=== PATIENT | female | born 1980 | race Caucasian/White ===

== ENCOUNTER 2020-04-17 00:58 | Emergency (ER) | payer BC ==
[2020-04-17] MEDS ORDERED: NORMAL SALINE 1000 ML 1,000 ML IV ONE (01:22)
[2020-04-17] MEDS ORDERED: ONDANSETRON HCL INJ/PF 4 MG/2 ML SDV IV ONE (01:22)
--- NOTE | 2020-04-17 01:25 | ER Document Report ---
ED General - General Chief Complaint: Shortness Of Breath Stated Complaint: FLU LIKE SYMPTOMS Time Seen by Provider: 04/17/20 01:14 Notes: Patient is a 39 year old female that comes to the emergency department for chief complaint of feeling generally sick symptoms for the past 6 days, however over the past day she has developed a fever, cough, shortness of breath. Patient also states that she had dry heaving throughout the day, several loose stools over the past 2 days, and she is almost eaten nothing for the past 2 days. She has been closely exposed to her who already tested positive for COVID- 19, patient does report a recent trip to [place]. Patient has a history of anxiety, medicated for this, , she denies any medical history otherwise including smoking, asthma, recreational drugs. Patient was noted to have a fev er of 100.8 F, she was given Tylenol 975 mg by EMS, she was also noted to have oxygen of 92% on room air and was placed on 2 L nasal cannula at bedside. - Related Data Allergies/Adverse Reactions: No Known Allergies Allergy (Verified 04/17/20 01:13) Past Medical History - General Information source: Patient - Social History Smoking Status: Never Smoker Frequency of alcohol use: None Drug Abuse: None Lives with: Family Family History: Reviewed & Not Pertinent Patient has homicidal ideation: No Past Surgical History: Reports: Hx Tonsillectomy - Immunizations Hx Diphtheria, Pertussis, Tetanus Vaccination: Yes Review of Systems - Review of Systems Constitutional: See HPI EENT: No symptoms reported Cardiovascular: No symptoms reported Respiratory: See HPI Gastrointestinal: See HPI Genitourinary: No symptoms reported Female Genitourinary: No symptoms reported Musculoskeletal: No symptoms reported Skin: No symptoms reported Hematologic/Lymphatic: No symptoms reported Neurological/Psychological: No symptoms reported Physical Exam - Vital signs Vitals: Pulse Ox 96 04/17/20 01:05 - Notes Notes: GENERAL: Alert, interacts well. No acute distress. HEAD: Normocephalic, atraumatic. EYES: Pupils equal, round, and reactive to light. Extraocular movements intact. ENT: Oral mucosa moist, tongue midline. Oropharynx unremarkable. Airway patent. Nares patent, sinuses non-tender, ear canals unremarkable, TM's intact. NECK: Full range of motion. Supple. Trachea midline. No lymphadenopathy. LUNGS: Occasional mild cough and scattered coarse breath sounds. No wheezes, rales, rhonchi, tachypnea, or respiratory distress. HEART: Borderline tachycardia, normal rhythm, no murmur ABDOMEN: Soft, non-tender. Non-distended. No rigidity or guarding EXTREMITIES: Moves all 4 extremities spontaneously. No edema, normal radial and dorsalis pedis pulses bilaterally. No cyanosis. BACK: no cervical, thoracic, lumbar midline tenderness. No saddle anesthesia, normal distal neurovascular exam. Moves all extremities in full range of motion. NEUROLOGICAL: Alert and oriented x3. Normal speech. Cranial nerves II through XII grossly intact. Strength 5/5 in all extremities. PSYCH: Normal affect, normal mood. SKIN: Warm, dry, normal turgor. No rashes or lesions noted. Course - Re-evaluation Re-evalutation: Patient was taken off 2 L nasal cannula, her oxygen varies from 92 to normal range. She has a few coarse breath sounds but no tachypnea, no wheezing, rales, or rhonchi. She is febrile and this was treated. She is not tachycardic. She is quite well-appearing, talkative, alert. CBC unremarkable, chemistry unremarkable except mild elevation of LFTs. Abdomen is soft and nontender. Troponin is not elevated. is negative. Urine shows ketones, blood, patient is finishing up her menstrual cycle. Patient was given IV fluids and nausea medication, afterwards she tolerated p.o. without difficulty, she states she feels much better. Chest x-ray does indicate left lower pneumonia. Blood cultures are pending. Patient significant other is positive for COVID-19. I highly suspect COVID-19 as a cause of her generalized symptoms. Given Rocephin, azithromycin, dexamethasone. Discussed with Dr. Matta. Recommendation is that patient can be discharged with azithromycin, nausea medication, and strict return precautions. I discussed this at length with patient. She states appreciation and agreement. Stable and well-appearing at time of discharge. - Vital Signs Vital signs: Temp Pulse Resp BP Pulse Ox 98.4 F 98 15 110/72 98 04/17/20 05:05 04/17/20 05:05 04/17/20 05:05 04/17/20 05:05 04/17/20 05:05 - Laboratory Result Diagrams: 04/17/20 00:25 04/17/20 00:25 Laboratory results interpreted by me: 04/17/20 04/17/20 04/17/20 00:25 00:25 03:57 MCV 79 L MCH 26.8 L RDW 15.8 H Sodium 135.6 L Carbon Dioxide 21 L BUN 6 L Glucose 111 H AST 110 H ALT 62 H Urine Protein 100 H Urine Ketones 80 H Urine Blood LARGE H Ur Leukocyte Esterase TRACE H Urine Ascorbic Acid 40 H - EKG Interpretation by Me Additional EKG results interpreted by me: EKG shows sinus rhythm at a rate of 95, QTC 483, left axis deviation, no T wave inversions or ST segment changes in consecutive leads Discharge - Discharge Clinical Impression: Person under investigation for COVID-19 Pneumonia Qualifiers: Pneumonia type: due to unspecified organism Laterality: left Lung location: lower lobe of lung Qualified Code(s): J18.9 - Pneumonia, unspecified organism Fever Qualifiers: Fever type: unspecified Qualified Code(s): R50.9 - Fever, unspecified Nausea and vomiting Qualifiers: Vomiting type: unspecified Vomiting Intractability: non-intractable Qualified Code(s): R11.2 - Nausea with vomiting, unspecified Condition: Stable Disposition: HOME, SELF-CARE Additional Instructions: Your evaluation shows pneumonia. We also strongly suspect that you have the COVID-19 virus. Take the antibiotics as prescribed, your next dose of this is tomorrow. Drink plenty of fluids and rest. You can take Tylenol and ibuprofen for fever and body aches. Take Phenergan for nausea/vomiting. Come back if you are worse including difficulty breathing, continued spiking fevers, uncontrolled vomiting, or any other concerning or worsening symptoms. See additional instructions listed below. As a person under investigation for COVID-19, the [place] Department of Health and Human Services (division on public health) advises you to adhere to the following guidance until your test results are reported to you. If your test result is positive, you will receive additional information from your provider and your local health department at that time. Remain at home until you are cleared by the health provider or public health authorities. Keep a log of visitors to your home, notify any visitors to your home of your isolation status. If you plan to move to a new address or leave the county, notify the local health department in your County. Call your Doctor or seek care if you have an urgent medical need. Before seeking medical care, call him to get instructions from the provider before arriving at the medical office, clinic, or hospital. Notify them that you are being tested for the virus (COVID-19) so that arrangements can be made, as necessary, to prevent transmission to others in the healthcare setting. Next, notify the local health department in your county. If a medical emergency arises and you need to call 911, inform the first responders that you are being tested for the virus that causes COVID-19. Next, notify the local health department in your county. Prescriptions: Promethazine HCl [Phenergan 25 mg Tablet] 25 mg PO Q6H PRN #20 tablet PRN Reason: Azithromycin [Zithromax 250 mg Tablet] 250 mg PO ASDIR PRN #4 tablet PRN Reason:
[2020-04-17 01:31] LABS: ABSOLUTE LYMPHOCYTES (AUTO) 1.3 10^3/uL (0.5-4.7); ABSOLUTE MONOCYTES (AUTO) 0.2 10^3/uL (0.1-1.4); ABSOLUTE NEUT (AUTO) 3.3 10^3/uL (1.7-8.2); BASOPHILS % (AUTO) 0.3 % (0-2); EOSINOPHILS % (AUTO) 0.1 % (0-6); HEMATOCRIT 39.9 % (36.0-47.0); HEMOGLOBIN 13.5 g/dL (12.0-15.5); LYMPHOCYTES % (AUTO) 26.1 % (13-45); MEAN CORPUSCULAR HEMOGLOBIN 26.8 pg (27.0-33.4); MEAN CORPUSCULAR HGB CONC 33.8 g/dL (32.0-36.0); MEAN CORPUSCULAR VOLUME 79 fl (80-97); MONOCYTES % (AUTO) 4.8 % (3-13); PLATELET COUNT 251 10^3/uL (150-450); RED BLOOD COUNT 5.03 10^6/uL (3.72-5.28); RED CELL DISTRIBUTION WIDTH 15.8 % (11.5-14.0); SEGMENTED NEUTROPHILS % (AUTO) 68.7 % (42-78); TOTAL CELLS COUNTED % (AUTO) 100 %; WHITE BLOOD COUNT 4.8 10^3/uL (4.0-10.5)
[2020-04-17 01:47] LABS: ALBUMIN 4.3 g/dL (3.5-5.0); ALKALINE PHOSPHATASE 77 U/L (38-126); ANION GAP 10 (5-19); ASPARTATE AMINO TRANSFERASE 110 U/L (14-36); BILIRUBIN,DIRECT 0.1 mg/dL (0.0-0.4); BILIRUBIN,TOTAL 0.4 mg/dL (0.2-1.3); BLOOD UREA NITROGEN 6 mg/dL (7-20); CALCIUM 8.9 mg/dL (8.4-10.2); CARBON DIOXIDE 21 mmol/L (22-30); CHLORIDE 105 mmol/L (98-107); GLUCOSE 111 mg/dL (75-110); TOTAL PROTEIN 7.8 g/dL (6.3-8.2)
--- NOTE | 2020-04-17 02:34 | RADIOLOGY REPORT (SQ) ---
CLINICAL HISTORY: shortness of breath, fever, COVID exposure COMPARISON: None. TECHNIQUE: XR CHEST 1 VIEW 04/17/2020 1:21 AM CDT FINDINGS: Cardiac silhouette is normal in size. There is mild mostly left basilar airspace disease. There is no pleural effusion. There is no pneumothorax. There are no acute osseous findings. IMPRESSION: Possible developing mostly left basilar pneumonia.
[2020-04-17] MEDS ORDERED: DEXAMETHASONE SOD PHOS INJ 10 MG/1 ML VIAL IV ONE ×2 (02:40→03:55)
[2020-04-17] MEDS ORDERED: CEFTRIAXONE 1 GM/D5W RTU 1 GM/50 ML RTUPB IV ONE (02:40)
[2020-04-17] MEDS ORDERED: AZITHROMYCIN 250 MG TABLET PO ONE (03:55)
[2020-04-17 04:26] LABS: APPEARANCE,URINE SLIGHTLY-CLOUDY; BILIRUBIN,URINE NEGATIVE (NEGATIVE); COLOR,URINE AMBER; GLUCOSE, URINE NEGATIVE (NEGATIVE); KETONES,URINE 80 mg/dL (NEGATIVE); LEUKOCYTE ESTERASE,URINE TRACE (NEGATIVE); NITRITE,URINE NEGATIVE (NEGATIVE); PROTEIN,URINE 100 mg/dL (NEGATIVE); URINE SPECIFIC GRAVITY 1.021; UROBILINOGEN,URINE NEGATIVE mg/dL (<2.0)
[2020-04-17 05:07] VITALS: BP 110/72
--- NOTE | 2020-04-18 10:24 | EKG REPORT ---
SEVERITY:- ABNORMAL ECG - SINUS RHYTHM PROBABLE LEFT ATRIAL ABNORMALITY LEFT VENTRICULAR HYPERTROPHY : Confirmed by: Violette Corea 18-Apr-2020 10:22:55
== END 2020-04-17 05:05 | disposition home or self-care (01) ==
LOC: ER 00:58
DX: Z20.828 Contact with and (suspected) exposure to other viral communicable diseases (principal); J18.9 Pneumonia, unspecified organism; R11.2 Nausea with vomiting, unspecified; R50.9 Fever, unspecified; R06.02 Shortness of breath; R05 Cough; R19.7 Diarrhea, unspecified; F41.9 Anxiety disorder, unspecified
CPT/HCPCS: 93005; 96376; 99284; 96361; 96375; 96365; 36415; 87040; 83690; 84703; 85025; 80053; 81001; 84484; 71045; 93010; J2405; J7030; J0696; J1100

== ENCOUNTER 2020-04-18 21:29 | Inpatient (IN) | payer BC ==
[2020-04-18] MEDS ORDERED: NORMAL SALINE 1000 ML 1,000 ML IV ONE (21:54)
[2020-04-18] MEDS ORDERED: ACETAMINOPHEN 325 MG TABLET PO ONE (21:55)
--- NOTE | 2020-04-18 22:18 | ER Document Report ---
Entered by AKHIL POPE SCRIBE 04/18/20 [id number] Acting as scribe for:GLORIA QUARLES IV, MD ED Respiratory Problem - General Chief Complaint: Other Stated Complaint: COVID 19 SYMPTOMS Time Seen by Provider: 04/18/20 21:34 Primary Care Provider: JOSE FOY MD [Primary Care Provider] - Follow up as needed Mode of Arrival: Medic Information source: Patient, Emergency Med Personnel Notes: This 39 year old female patient brought in by EMS from home presents to the ED today with complaints of increased shortness of breath for the last week, worse tonight. Patient also reports associated fever with temperature of 102.5 at home, cough, nausea/dry heaving, body aches, and difficulty sleeping. She states that she was seen here yesterday with the same complaint and felt better after being treated with supplemental oxygen, steroids, and fluids; however, she felt worse tonight so she called for EMS. Patient's is COVID positive and is currently being treated here. She also mentions recent travel to [place]. She notes that she has been tested for COVID by her PCP with results pending. Patients O2 sats were initially 89% on RA upon EMS arrival, so she was placed on 3L supplemental O2 which brought the sats up to 95%. - Related Data Allergies/Adverse Reactions: No Known Allergies Allergy (Verified 04/18/20 22:03) Past Medical History - General Information source: Patient - Social History Smoking Status: Never Smoker Cigarette use (# per day): No Chew tobacco use (# tins/day): No Smoking Education Provided: No Lives with: Spouse/Significant other Family History: Reviewed & Not Pertinent Patient has suicidal ideation: No Patient has homicidal ideation: No Psychiatric Medical History: Reports: Hx Anxiety Past Surgical History: Reports: Hx Section, Hx Tonsillectomy - Immunizations Hx Diphtheria, Pertussis, Tetanus Vaccination: Yes Review of Systems - Review of Systems Constitutional: See HPI, Fever EENT: No symptoms reported Cardiovascular: No symptoms reported Respiratory: See HPI, Cough, Short of breath Gastrointestinal: See HPI, Nausea, Vomiting Genitourinary: No symptoms reported Female Genitourinary: No symptoms reported Musculoskeletal: See HPI, Muscle pain Skin: No symptoms reported Hematologic/Lymphatic: No symptoms reported Neurological/Psychological: No symptoms reported -: Yes All other systems reviewed and negative Physical Exam - Vital signs Vitals: Resp BP Pulse Ox 31 H 113/67 90 L 04/18/20 21:25 04/18/20 21:25 04/18/20 21:25 - General General appearance: Alert, Other - Speaks in short sentences - HEENT Head: Normocephalic, Atraumatic Eyes: Normal Pupils: PERRL - Respiratory Respiratory status: Tachypnea, Other - 96% O2 saturation on 3L O2 via NC Chest status: Nontender Breath sounds: Other - Crackles in left lung base Chest palpation: Normal - Cardiovascular Rhythm: Regular, Tachycardia Heart sounds: Normal auscultation Murmur: No Friction rub: No Gallop: None auscultated - Abdominal Inspection: Normal Distension: No distension Bowel sounds: Normal Tenderness: Nontender - Abdomen soft Organomegaly: No organomegaly - Back Back: Normal, Nontender - Extremities General upper extremity: Normal inspection General lower extremity: Normal inspection - Neurological Neuro grossly intact: Yes Orientation: AAOx4 [place] Coma Scale Eye Opening: Spontaneous Dave Coma Scale Verbal: Oriented [place] Coma Scale Motor: Obeys Commands [place] Coma Scale Total: 15 - Psychological Associated symptoms: Normal affect, Normal mood - Skin Skin Temperature: Warm Skin Moisture: Dry Skin Color: Normal Course - Re-evaluation Re-evalutation: 04/19/20 00:35 Results of ED MSE discussed with patient. Recommendation for admission discussed with patient. All questions were answered. - Vital Signs Vital signs: Temp Pulse Resp BP Pulse Ox 100 F 97 22 H 115/71 96 04/18/20 21:40 04/18/20 21:40 04/18/20 23:31 04/18/20 23:31 04/18/20 23:31 - Laboratory Result Diagrams: 04/18/20 22:08 04/18/20 22:08 Laboratory results interpreted by me: 04/18/20 04/18/20 22:08 22:08 MCH 26.8 L RDW 15.9 H Sodium 134.3 L Potassium 3.4 L BUN 6 L Glucose 127 H Calcium 8.2 L AST 60 H - Diagnostic Test Radiology reviewed: Reports reviewed - Consults DR. BANG, HOSPITALIST Time consulted: 00:35 - ACCEPTED PT FOR ADMISSION Reason for consultation: 04/19/20 00:37 ACUTE RESPIRATORY FAILURE WITH HYPOXIA, BILATERAL PNEUMONIA Discharge - Discharge Clinical Impression: Acute respiratory failure with hypoxia Bilateral pneumonia Qualifiers: Pneumonia type: due to unspecified organism Lung location: unspecified part of lung Qualified Code(s): J18.9 - Pneumonia, unspecified organism Condition: Stable Disposition: ADMITTED INPATIENT Admitting Provider: Jono (Hospitalist) Unit Admitted: IMCU Referrals: JOSE FOY MD [Primary Care Provider] - Follow up as needed I personally performed the services described in the documentation, reviewed and edited the documentation which was dictated to the scribe in my presence, and it accurately records my words and actions.
[2020-04-18 22:24] LABS: ABSOLUTE LYMPHOCYTES (AUTO) 1.3 10^3/uL (0.5-4.7); ABSOLUTE MONOCYTES (AUTO) 0.3 10^3/uL (0.1-1.4); ABSOLUTE NEUT (AUTO) 4.5 10^3/uL (1.7-8.2); BASOPHILS % (AUTO) 0.5 % (0-2); HEMATOCRIT 36.7 % (36.0-47.0); HEMOGLOBIN 12.4 g/dL (12.0-15.5); LYMPHOCYTES % (AUTO) 20.7 % (13-45); MEAN CORPUSCULAR HEMOGLOBIN 26.8 pg (27.0-33.4); MEAN CORPUSCULAR HGB CONC 33.7 g/dL (32.0-36.0); MEAN CORPUSCULAR VOLUME 80 fl (80-97); MONOCYTES % (AUTO) 4.3 % (3-13); PLATELET COUNT 280 10^3/uL (150-450); RED BLOOD COUNT 4.61 10^6/uL (3.72-5.28); RED CELL DISTRIBUTION WIDTH 15.9 % (11.5-14.0); SEGMENTED NEUTROPHILS % (AUTO) 74.5 % (42-78); TOTAL CELLS COUNTED % (AUTO) 100 %; WHITE BLOOD COUNT 6.1 10^3/uL (4.0-10.5)
[2020-04-18 22:43] LABS: ALBUMIN 3.5 g/dL (3.5-5.0); ALKALINE PHOSPHATASE 52 U/L (38-126); ANION GAP 6 (5-19); ASPARTATE AMINO TRANSFERASE 60 U/L (14-36); BILIRUBIN,DIRECT 0.1 mg/dL (0.0-0.4); BILIRUBIN,TOTAL 0.5 mg/dL (0.2-1.3); BLOOD UREA NITROGEN 6 mg/dL (7-20); CALCIUM 8.2 mg/dL (8.4-10.2); CARBON DIOXIDE 23 mmol/L (22-30); CHLORIDE 105 mmol/L (98-107); GLUCOSE 127 mg/dL (75-110); POTASSIUM 3.4 mmol/L (3.6-5.0); TOTAL PROTEIN 6.8 g/dL (6.3-8.2)
--- NOTE | 2020-04-18 23:14 | RADIOLOGY REPORT (SQ) ---
EXAM DESCRIPTION: XR CHEST 1 VIEW COMPLETED DATE/TME: 04/18/2020 21:55 CLINICAL HISTORY: dyspnea COMPARISON: 04/17/2020 FINDINGS: Single frontal view of the chest. Cardiomediastinal silhouette: Cardiomegaly. Lungs: Low lung volumes. Interval increase in bibasilar airspace opacity. No pneumothorax. No definite effusion. Leads overlie the chest. Bones: Stable. Upper abdomen: Stable. IMPRESSION: 1. Interval increase in bibasilar opacities concerning for bilateral pneumonic process. Bilateral pneumonia could produce this appearance.
[2020-04-19] MEDS ORDERED: MAG HYDROX/AL HYDROX/SIMETH SUSP 30 ML UDCUP PO PRN (01:25)
[2020-04-19] MEDS ORDERED: MAGNESIUM HYDROXIDE SUSP 30 ML UDCUP PO PRN (01:25)
[2020-04-19] MEDS ORDERED: LORAZEPAM INJ 2 MG/1 ML VIAL IV PRN (01:25)
[2020-04-19] MEDS ORDERED: DEXAMETHASONE SOD PHOSPHATE INJ 4 MG/1 ML VIAL ONE (04:58)
[2020-04-19] MEDS: ACETAMINOPHEN 325 MG TABLET PO PRN ×2 (05:00→20:59)
[2020-04-19] MEDS: DEXAMETHASONE SOD PHOSPHATE INJ 4 MG/1 ML VIAL IV SCH ×3 (05:01→21:01)
[2020-04-19] MEDS: ENOXAPARIN SODIUM INJ 120 MG/0.8 ML DISP.SYRIN SUBCUT SCH ×3 (05:01→21:02)
[2020-04-19] MEDS: GUAIFENESIN SYRP 200 MG/10 ML UDC PO PRN ×3 (05:03→20:59)
[2020-04-19] MEDS ORDERED: MORPHINE SULFATE 10 MG/ML INJ ONE (05:47)
[2020-04-19] MEDS ORDERED: MORPHINE SULFATE 10 MG/ML INJ IV PRN ×6 (05:57→06:29)
[2020-04-19] MEDS ORDERED: HEPARIN SOD (PORCINE) 5,000 UNIT/ML 1 ML VIAL SUBCUT SCH (06:00)
--- NOTE | 2020-04-19 06:14 | PDOC H&P ---
History of Present Illness Admission Date/PCP: 04/19/2020 00:38 JOSE FOY MD Patient complains of: Dyspnea History of Present Illness: TATUM TOLLIVER is a 39 year old female who presented the emergency room with a one-week history of dyspnea. She admits gradually worsening dyspnea over the last week, becoming severe just prior to coming to the emergency room, accompanied by a nonproductive cough and a fever up to 102.5 F with chills. Her dyspnea has been associated with nausea with retching, malaise, ague and insomnia. Her dyspnea is worsened by activity or exertion and improved with rest. She denies other associated or accompanying signs and symptoms. She denies prior similar episodes. She has not identified any additional aggravating or ameliorating factors for her dyspnea. She was seen by Dr. Foy earlier in the week and was tested for COVID-19 but has not yet received the results. She was seen in the emergency room on 04/17/2020 for the same symptoms but felt improved after she was treated with IV fluid, IV steroids and supplemental oxygen. Her symptoms returned on the evening of 04/18/2020 becoming severe and resulting in her return to the emergency room. Her was diagnosed is COVID-19 positive earlier this week. In the emergency room she was found to have an O2 sat of 89% on room air and was treated with supplemental oxygen. Her chest x-ray was noted to have progressive worsening of her bibasilar pneumonia and she was subsequently admitted to the hospital for further evaluation and treatment on the COVID-19 unit as a patient under investigation. Past Medical History Cardiac Medical History: Denies: Atrial Fibrillation, Coronary Artery Disease, DVT, Hyperlipidema, Hypertension, Pulmonary Embolism Pulmonary Medical History: Reports: Pneumonia Denies: Asthma, Chronic Obstructive Pulmonary Disease (COPD) EENT Medical History: Denies: Cataracts, Ears - Hearing aids Neurological Medical History: Denies: Multiple Sclerosis, Seizures Endocrine Medical History: Denies: Diabetes Mellitus Type 1, Diabetes Mellitus Type 2, Hyperthyroidism, Hypothyroidism Renal/ Medical History: Denies: Chronic Kidney Disease, Nephrolithiasis Malignancy Medical History: Reports: None GI Medical History: Denies: Cirrhosis, Crohn's Disease, Gastroesophageal Reflux Disease, Hepatitis, Peptic Ulcer Disease, Ulcerative Colitis Musculoskeltal Medical History: Denies: Arthritis, Gout Skin Medical History: Denies: Eczema, Psoriasis Psychiatric Medical History: Reports: General Anxiety Disorder Denies: Alcohol Dependency, Substance Abuse, Tobacco Dependency Traumatic Medical History: Reports: None Hematology: Denies: Anemia, Bleeding Tendencies Infectious Medical History: Reports: None Past Surgical History Past Surgical History: Reports: Section, Tonsillectomy Social History Information Source: Patient Lives with: Spouse/Significant other Smoking Status: Never Smoker Electronic Cigarette use?: No Frequency of Alcohol Use: Occasional Hx Recreational Drug Use: No Drugs: None Hx Prescription Drug Abuse: No - Advance Directive Resuscitation Status: Full Code Surrogate healthcare decision maker:: Pankaj Tolliver Family History Family History: DM, Other. denies: CAD, Hypertension, Malignancy Parental Family History Reviewed: Yes Children Family History Reviewed: No Sibling(s) Family History Reviewed.: Yes Medication/Allergy Home Medications: Azithromycin [Zithromax 250 mg Tablet] 250 mg PO ASDIR PRN #4 tablet 04/17/20 Promethazine HCl [Phenergan 25 mg Tablet] 25 mg PO Q6H PRN #20 tablet 04/17/20 Venlafaxine HCl 37.5 mg PO DAILY 04/18/20 Allergies/Adverse Reactions: No Known Allergies Allergy (Verified 04/18/20 22:03) Review of Systems Constitutional: PRESENT: as per HPI, chills, fever(s) Eyes: ABSENT: visual disturbances, other - Eye pain Ears: ABSENT: hearing changes, other - Ear pain Nose, Mouth, and Throat: ABSENT: headache(s), sore throat Cardiovascular: PRESENT: as per HPI, dyspnea on exertion. ABSENT: chest pain, palpitations Respiratory: PRESENT: as per HPI, cough, dyspnea. ABSENT: hemoptysis, sputum Gastrointestinal: PRESENT: nausea, vomiting - Retching. ABSENT: abdominal pain, constipation, diarrhea Genitourinary: ABSENT: dysuria, hematuria Musculoskeletal: ABSENT: back pain, joint swelling Integumentary: ABSENT: pruritus, rash Neurological: ABSENT: confusion, convulsions, focal weakness, memory loss, syncope Psychiatric: PRESENT: anxiety. ABSENT: depression Endocrine: ABSENT: cold intolerance, heat intolerance Hematologic/Lymphatic: ABSENT: easy bleeding, easy bruising Allergic/Immunologic: ABSENT: seasonal rhinorrhea Physical Exam Vital Signs: Temp Pulse Resp BP Pulse Ox 100 F 97 22 H 115/71 96 04/18/20 21:40 04/18/20 21:40 04/18/20 23:31 04/18/20 23:31 04/18/20 23:31 Intake & Output 04/17/20 04/18/20 04/19/20 23:59 23:59 23:59 Intake Total 1000 Balance 1000 Weight 117.9 kg General appearance: PRESENT: no acute distress, cooperative, other - On supplemental oxygen per nasal cannula at the time of my evaluation Head exam: PRESENT: atraumatic, normocephalic Eye exam: PRESENT: conjunctiva pink. ABSENT: conjunctival injection, scleral icterus Ear exam: PRESENT: normal external ear exam. ABSENT: bleeding, drainage Mouth exam: PRESENT: dry mucosa, neck supple Neck exam: ABSENT: thyromegaly, tracheal deviation Respiratory exam: PRESENT: symmetrical, tachypnea. ABSENT: rales, rhonchi Cardiovascular exam: PRESENT: RRR. ABSENT: clicks, gallop, rubs Pulses: ABSENT: normal radial pulses, normal dorsalis pedis pul Vascular exam: PRESENT: normal capillary refill. ABSENT: pallor GI/Abdominal exam: PRESENT: normal bowel sounds, soft. ABSENT: tenderness Rectal exam: PRESENT: deferred Extremities exam: ABSENT: joint swelling, pedal edema Musculoskeletal exam: ABSENT: deformity, dislocation Neurological exam: PRESENT: alert, oriented to person, oriented to place, oriented to time, oriented to situation, CN II-XII grossly intact. ABSENT: motor sensory deficit Psychiatric exam: PRESENT: appropriate affect, normal mood Skin exam: PRESENT: dry, intact, warm. ABSENT: jaundice, rash, urticaria Results Laboratory Results: 04/18/20 22:08 04/18/20 22:08 04/18/20 04/18/20 04/18/20 22:08 22:08 22:08 WBC 6.1 RBC 4.61 Hgb 12.4 Hct 36.7 MCV 80 MCH 26.8 L MCHC 33.7 RDW 15.9 H Plt Count 280 Seg Neutrophils % 74.5 Sodium 134.3 L Potassium 3.4 L Chloride 105 Carbon Dioxide 23 Anion Gap 6 BUN 6 L Creatinine 0.67 Est GFR ( Amer) > 60 Glucose 127 H Lactic Acid 1.1 Calcium 8.2 L Total Bilirubin 0.5 AST 60 H Alkaline Phosphatase 52 Total Protein 6.8 Albumin 3.5 Impressions: Chest X-Ray 04/18/20 21:55 IMPRESSION: 1. Interval increase in bibasilar opacities concerning for bilateral pneumonic process. Bilateral pneumonia could produce this appearance. Assessment and Plan - Diagnosis (1) Community acquired bilateral lower lobe pneumonia Is this a current diagnosis for this admission?: Yes (2) Acute respiratory failure with hypoxia Is this a current diagnosis for this admission?: Yes (3) Generalized anxiety disorder Is this a current diagnosis for this admission?: Yes (4) Person under investigation for COVID-19 Is this a current diagnosis for this admission?: Yes - Plan Summary Summary: Patient will be admitted to the COVID 19 unit where she will receive routine sup portive and symptomatic cares. She will be given supplemental oxygen via nasal cannula with potential use of noninvasive airway pressure support devices as needed to maintain an adequate oxygen saturation. She will receive Decadron 2 mg IV every 8 hours. She will receive zinc 220 mg p.o. daily, famotidine 20 mg p.o. twice daily, azithromycin 500 mg p.o. daily and Rocephin 1 g IV daily. She will enjoy a regular diet as tolerated. She will initially receive D5 lactated Ringer solution at 167 mL an hour. She will receive Ativan 1 mg IV every 4 hours as needed for anxiety or restlessness. CBCs, metabolic profiles, magnesium levels and additional laboratory and/or radiographic evaluations will be obtained as needed. - Time Time Spent with patient: Less than 15 minutes Anticipated Discharge Disposition: Home, Self Care Anticipated Discharge: Other - Undetermined - Inpatient Certification Based on my medical assessment, after consideration of the patient's comorbidities, presenting symptoms, or acuity I expect that the services needed warrant INPATIENT care.: Yes I certify that my determination is in accordance with my understanding of Medic are's requirements for reasonable and necessary INPATIENT services [42 CFR 412.3e].: Yes Medical Necessity: Failure to Improve With Outpatient Therapy, Need Close Monitoring Due to Risk of Patient Decompensation
[2020-04-19] MEDS: DEXTROSE 5%-LACTATED RINGERS 1,000 ML IV PRN ×3 (07:37→20:59)
[2020-04-19] MEDS: VENLAFAXINE HCL 75 MG TABLET PO SCH (09:39)
[2020-04-19] MEDS: ZINC SULFATE 220 MG CAPSULE PO SCH (09:40)
[2020-04-19] MEDS: AZITHROMYCIN 250 MG TABLET PO SCH (09:40)
[2020-04-19] MEDS: FAMOTIDINE 20 MG TABLET PO SCH ×2 (09:40→21:01)
[2020-04-19] MEDS: CEFTRIAXONE 1 GM/D5W RTU 1 GM/50 ML RTUPB IV SCH (09:41)
[2020-04-19] MEDS ORDERED: VENLAFAXINE HCL 25 MG TABLET PO SCH (10:00)
[2020-04-19] MEDS: PROMETHAZINE HCL INJ 25 MG/1 ML VIAL IV PRN ×2 (11:48→16:24)
[2020-04-19] MEDS: MORPHINE SULFATE 10 MG/ML INJ IV PRN ×3 (11:49→20:59)
[2020-04-19] MEDS ORDERED: IPRATROPIUM/ALBUTEROL 0.5-2.5 MG/3 ML AMPUL NEB PRN (14:30)
[2020-04-19] MEDS ORDERED: IPRATROPIUM/ALBUTEROL 0.5-2.5 MG/3 ML AMPUL NEB SCH ×2 (14:30→16:00)
[2020-04-19 16:03] LABS: ARTERIAL BLOOD BASE EXCESS 0.8 mmol/L; ARTERIAL BLOOD FIO2 5L; ARTERIAL BLOOD H2CO3 1.02 mmol/L (1.05-1.35); ARTERIAL BLOOD O2 SATURATION 85.9 % (94-98); ARTERIAL BLOOD PCO2 33.8 mmHg (35-45); ARTERIAL BLOOD PH 7.47 (7.35-7.45); ARTERIAL BLOOD TOTAL CO2 25.1 mmol/L (21-25)
[2020-04-19] MEDS: IPRATROPIUM/ALBUTEROL 0.5-2.5 MG/3 ML AMPUL NEB SCH (20:30)
[2020-04-19] MEDS: MELATONIN 5 MG TABLET PO PRN (21:01)
[2020-04-20] MEDS: IPRATROPIUM/ALBUTEROL 0.5-2.5 MG/3 ML AMPUL NEB SCH ×2 (02:13→08:50)
[2020-04-20] MEDS: MORPHINE SULFATE 10 MG/ML INJ IV PRN ×2 (03:17→09:00)
[2020-04-20] MEDS: GUAIFENESIN SYRP 200 MG/10 ML UDC PO PRN ×2 (03:18→09:00)
[2020-04-20] MEDS: DEXTROSE 5%-LACTATED RINGERS 1,000 ML IV PRN ×2 (03:19→09:56)
[2020-04-20 04:15] LABS: APPEARANCE,URINE SLIGHTLY-CLOUDY; BILIRUBIN,URINE NEGATIVE (NEGATIVE); COLOR,URINE YELLOW; GLUCOSE, URINE NEGATIVE (NEGATIVE); KETONES,URINE NEGATIVE (NEGATIVE); LEUKOCYTE ESTERASE,URINE NEGATIVE (NEGATIVE); NITRITE,URINE NEGATIVE (NEGATIVE); PROTEIN,URINE NEGATIVE (NEGATIVE); URINE SPECIFIC GRAVITY 1.012; UROBILINOGEN,URINE NEGATIVE mg/dL (<2.0)
[2020-04-20 05:28] LABS: HEMATOCRIT 34.2 % (36.0-47.0); HEMOGLOBIN 11.6 g/dL (12.0-15.5); MEAN CORPUSCULAR HEMOGLOBIN 26.9 pg (27.0-33.4); MEAN CORPUSCULAR VOLUME 79 fl (80-97); PLATELET COUNT 255 10^3/uL (150-450); RED BLOOD COUNT 4.32 10^6/uL (3.72-5.28); RED CELL DISTRIBUTION WIDTH 15.9 % (11.5-14.0); WHITE BLOOD COUNT 7.1 10^3/uL (4.0-10.5)
[2020-04-20 05:49] LABS: ANION GAP 8 (5-19); BLOOD UREA NITROGEN 3 mg/dL (7-20); CALCIUM 8.1 mg/dL (8.4-10.2); CARBON DIOXIDE 24 mmol/L (22-30); CHLORIDE 107 mmol/L (98-107); GLUCOSE 161 mg/dL (75-110); POTASSIUM 3.9 mmol/L (3.6-5.0)
[2020-04-20] MEDS: DEXAMETHASONE SOD PHOSPHATE INJ 4 MG/1 ML VIAL IV SCH ×3 (06:10→21:31)
[2020-04-20 09:30] LABS: ARTERIAL BLOOD BASE EXCESS 1.8 mmol/L; ARTERIAL BLOOD H2CO3 1.14 mmol/L (1.05-1.35); ARTERIAL BLOOD HCO3 25.7 mmol/L (20-24); ARTERIAL BLOOD O2 SATURATION 87.7 % (94-98); ARTERIAL BLOOD PCO2 37.9 mmHg (35-45); ARTERIAL BLOOD PH 7.45 (7.35-7.45); ARTERIAL BLOOD PO2 50.8 mmHg (80-100); ARTERIAL BLOOD TOTAL CO2 26.9 mmol/L (21-25)
[2020-04-20] MEDS: VENLAFAXINE HCL 75 MG TABLET PO SCH (09:32)
[2020-04-20] MEDS: ENOXAPARIN SODIUM INJ 120 MG/0.8 ML DISP.SYRIN SUBCUT SCH ×2 (09:32→21:52)
[2020-04-20] MEDS: CEFTRIAXONE 1 GM/D5W RTU 1 GM/50 ML RTUPB IV SCH (09:32)
[2020-04-20] MEDS: FAMOTIDINE 20 MG TABLET PO SCH (09:32)
[2020-04-20] MEDS: AZITHROMYCIN 250 MG TABLET PO SCH (09:32)
[2020-04-20] MEDS: ZINC SULFATE 220 MG CAPSULE PO SCH (09:32)
[2020-04-20 09:46] LABS: ARTERIAL BLOOD FIO2 90%
[2020-04-20] MEDS ORDERED: MORPHINE SULFATE 10 MG/ML INJ IV PRN (09:58)
[2020-04-20] MEDS ORDERED: DEXTROSE 5%-LACTATED RINGERS 1,000 ML IV PRN (10:45)
--- NOTE | 2020-04-20 10:52 | PDOC PROGRESS REPORT ---
Subjective Progress Note for:: 04/20/20 Subjective:: TATUM TOLLIVER is a 39 year old female who presented the emergency room with a one-week history of dyspnea. She admits gradually worsening dyspnea over the last week, becoming severe just prior to coming to the emergency room, accompanied by a nonproductive cough and a fever up to 102.5 F with chills. Her dyspnea has been associated with nausea with retching, malaise, ague and insomnia. Her dyspnea is worsened by activity or exertion and improved with rest. She denies other associated or accompanying signs and symptoms. She denies prior similar episodes. She has not identified any additional aggravating or ameliorating factors for her dyspnea. She was seen by Dr. Erickson earlier in the week and was tested for COVID-19 but has not yet received the results. She was seen in the emergency room on 04/17/2020 for the same symptoms but felt improved after she was treated with IV fluid, IV steroids and supplemental oxygen. Her symptoms returned on the evening of 04/18/2020 becoming severe and resulting in her return to the emergency room. Her was diagnosed is COVID-19 positive earlier this week. In the emergency room she was found to have an O2 sat of 89% on room air and was treated with supplemental oxygen. Her chest x-ray was noted to have progressive worsening of her bibasilar pneumonia and she was subsequently admitted to the hospital for further evaluation and treatment on the COVID-19 unit as a patient under investigation. 04/20/2020. Patient noted to be hypoxic yesterday evening, and ABG showed severe hypoxemia, will start on high flow with resolution of her symptoms however this morning patient still noted to be in moderate distress and repeat ABG shows persistent hypoxemia. Patient denies any fever, p.o. tolerant, having bowel bladder movement, complaining of shortness of breath and anxiety. Denies any fever or chills. If hypoxemia worsen patient may need to be transferred to ICU. Reason For Visit: COMMUNITY-ACQUIRED BILATERAL LOWER LOBE PNEUMONIA Physical Exam Vital Signs: Temp Pulse Resp BP Pulse Ox 98.8 F 73 50 H 117/67 90 L 04/20/20 08:38 04/20/20 08:38 04/20/20 08:38 04/20/20 08:38 04/20/20 08:38 Intake & Output 04/19/20 04/20/2004/21/20 06:59 06:59 06:59 Intake Total 1120 3170 1050 Output Total 570 Balance 1120 2600 1050 Weight 117.9 kg 117.9 kg General appearance: PRESENT: obese, severe distress Head exam: PRESENT: atraumatic, normocephalic Respiratory exam: PRESENT: accessory muscle use, clear to auscultation rick, tachypnea. ABSENT: rales, rhonchi Cardiovascular exam: PRESENT: RRR. ABSENT: diastolic murmur, rubs, systolic murmur GI/Abdominal exam: PRESENT: normal bowel sounds, soft. ABSENT: distended, guarding, mass, organolmegaly, rebound, tenderness Neurological exam: PRESENT: alert, awake, oriented to person, oriented to place, oriented to time, oriented to situation, CN II-XII grossly intact. ABSENT: motor sensory deficit Skin exam: PRESENT: dry, intact, warm. ABSENT: cyanosis, rash Results Laboratory Results: 04/20/20 04:38 04/20/20 04:38 04/19/20 04/20/20 04/20/20 15:45 03:50 04:38 WBC 7.1 RBC 4.32 Hgb 11.6 L Hct 34.2 L MCV 79 L MCH 26.9 L MCHC 34.0 RDW 15.9 H Plt Count 255 Carbonic Acid 1.02 L HCO3/H2CO3 Ratio 23:1 ABG pH 7.47 H ABG pCO2 33.8 L ABG pO2 47.0 L ABG HCO3 24.0 ABG O2 Saturation 85.9 L ABG Base Excess 0.8 FiO2 5L Sodium Potassium Chloride Carbon Dioxide Anion Gap BUN Creatinine Est GFR ( Amer) Glucose Calcium Urine Color YELLOW Urine Appearance SLIGHTLY-CLOUDY Urine pH 6.0 Ur Specific [place] 1.012 Urine Protein NEGATIVE Urine Glucose (UA) NEGATIVE Urine Ketones NEGATIVE Urine Blood MODERATE H Urine Nitrite NEGATIVE Ur Leukocyte Esterase NEGATIVE Urine WBC (Auto) 3 Urine RBC (Auto) 7 04/20/20 04/20/20 04:38 09:10 WBC RBC Hgb Hct MCV MCH MCHC RDW Plt Count Carbonic Acid 1.14 HCO3/H2CO3 Ratio 22:1 ABG pH 7.45 ABG pCO2 37.9 ABG pO2 50.8 L ABG HCO3 25.7 H ABG O2 Saturation 87.7 L ABG Base Excess 1.8 FiO2 90% Sodium 138.8 Potassium 3.9 Chloride 107 Carbon Dioxide 24 Anion Gap 8 BUN 3 L Creatinine 0.49 L Est GFR ( Amer) > 60 Glucose 161 H Calcium 8.1 L Urine Color Urine Appearance Urine pH Ur Specific [place] Urine Protein Urine Glucose (UA) Urine Ketones Urine Blood Urine Nitrite Ur Leukocyte Esterase Urine WBC (Auto) Urine RBC (Auto) Impressions: Chest X-Ray 04/18/20 21:55 IMPRESSION: 1. Interval increase in bibasilar opacities concerning for bilateral pneumonic process. Bilateral pneumonia could produce this appearance. Assessment and Plan - Diagnosis (1) Pneumonia due to COVID-19 virus Is this a current diagnosis for this admission?: Yes Plan: COVID-19 serology positive. Noted to be in moderate respiratory distress. ABG positive for severe hypoxemia. Day 3 IV antibiotics. Day 3 IV azithromycin. Day 3 IV ceftriaxone. Day 3 IV therapeutic dose Lovenox. Day 3 IV Decadron. Continue high flow oxygen, empiric IV antibiotics, Decadron, duo nebs, vitamin C, zinc sulfate, incentive spirometry, flutter valve. If respiratory symptoms worsen patient may need to be transferred to ICU. I have talked to Dr. Zamora operator control room who has kindly agreed to evaluate patient to see if she needs to be transferred to ICU. (2) Acute respiratory failure with hypoxemia Is this a current diagnosis for this admission?: Yes Plan: Due to #1. Plan as per #1. (3) Obesity (BMI 35.0-39.9 without comorbidity) Is this a current diagnosis for this admission?: Yes Plan: BMI 40. Diet and lifestyle modification recommended. (4) Depression Is this a current diagnosis for this admission?: Yes Plan: Denies any homicidal or suicidal ideation. Resume home meds. - Plan Summary Summary: Patient will be admitted to the COVID 19 unit where she will receive routine supportive and symptomatic cares. She will be given supplemental oxygen via nasal cannula with potential use of noninvasive airway pressure support devices as needed to maintain an adequate oxygen saturation. She will receive Decadron 2 mg IV every 8 hours. She will receive zinc 220 mg p.o. daily, famotidine 20 mg p.o. twice daily, azithromycin 500 mg p.o. daily and Rocephin 1 g IV daily. She will enjoy a regular diet as tolerated. She will initially receive D5 lactated Ringer solution at 167 mL an hour. She will receive Ativan 1 mg IV every 4 hours as needed for anxiety or restlessness. CBCs, metabolic profiles, magnesium levels and additional laboratory and/or radiographic evaluations will be obtained as needed. - Time Time Spent with patient: 25-34 minutes Medications reviewed and adjusted accordingly: Yes Anticipated Discharge Disposition: Home, Self Care Anticipated Discharge: within 72 hours
[2020-04-20 12:38] LABS: PHOSPHORUS 2.8 mg/dL (2.5-4.5)
[2020-04-20 12:51] LABS: C-REACTIVE PROTEIN 118.5 mg/L (<10.0)
[2020-04-20] MEDS ORDERED: GUAIFENESIN/CODEINE PHOS 100-10 MG/ 5 ML UDC PO SCH (14:00)
[2020-04-20] MEDS: MAGNESIUM SULFATE/D5W 1 GM/100 ML RTUPB IV SCH ×2 (14:42→16:12)
[2020-04-20 15:17] LABS: INTERNATIONAL RATION (INR) 1.09; PROTHROMBIN TIME 14.1 SEC (11.4-15.4)
[2020-04-20 15:18] LABS: PARTIAL THROMBOPLASTIN TIME 39.2 SEC (23.5-35.8)
[2020-04-20 15:22] LABS: D-DIMER 0.34 ug/mL (0.00-0.50)
[2020-04-20 15:32] LABS: C-REACTIVE PROTEIN 76.4 mg/L (<10.0)
[2020-04-20] MEDS: CHOLECALCIFEROL (D3) 1,000 UNIT (25 MCG) TABLET PO SCH (15:36)
--- NOTE | 2020-04-20 15:56 | RADIOLOGY REPORT (SQ) ---
EXAM DESCRIPTION: CHEST SINGLE VIEW IMAGES COMPLETED DATE/TIME: 04/20/2020 3:45 pm REASON FOR STUDY: covid respiratory failure COMPARISON: 04/18/2020 EXAM PARAMETERS: NUMBER OF VIEWS: One view. TECHNIQUE: Single frontal radiographic view of the chest acquired. RADIATION DOSE: NA LIMITATIONS: None. FINDINGS: LUNGS AND PLEURA: Extensive bilateral airspace disease which is significantly progressed w hen compared to the prior study. No definite effusions or pneumothorax. MEDIASTINUM AND HILAR STRUCTURES: No masses. Contour normal. HEART AND VASCULAR STRUCTURES: Stable in appearance. BONES: No acute findings. HARDWARE: None in the chest. OTHER: No other significant finding. IMPRESSION: Extensive bilateral airspace disease which has progressed when compared to prior study. This could represent atypical pneumonia or less likely edema. TECHNICAL DOCUMENTATION: JOB ID: [id number] 2010 [employer]- All Rights Reserved Reading location - IP/workstation name: [email or web address]
--- NOTE | 2020-04-20 16:35 | CRITICAL CARE ADMISSION REPORT ---
HPI Date:: 04/20/20 Time:: 13:00 Reason for ICU Reason:: Acute hypoxic respiratory failure, [id number] positive Admission Date/Time & PCP: Admission Date/Time: 04/19/20 00:50 Primary Care Provider: JOSE FOY MD HPI: TATUM TOLLIVER is a 39 year old female who was admitted to General Medical floor from the emergency department with a 5-7 days of dyspnea. Her , a transplant recipient, was admitted for similar symptoms and found to be CoViD-19 positive. She subsequently proved positive as well. Her symptoms progressed insidiously this week after returning from [place] to visit asymptomatic family more than 8 days ago. She also had dry, nonproductive cough with fever of 102.5 F. She does endorse ageusia and anosmia. Additional symptoms include nausea/emesis. She was originally seen in the emergency room on 04/17/2020 and she was treated with IV fluids, steroids and oxygen and discharged home. She worsened and returned to the ED the night of 04/18/2020 and was subsequently admitted. Critical Care was asked to evaluate for possible transfer to ICU when her FiO2 requirements increased. She was placed on High flow nasal cannula with increase in dyspnea and respiratory rate. She endorses that her work of breathing is getting worse. She is also anxious because of this. At baseline, she has had a mild anxiety disorder treated with Effexor. She states this is related to the deaths of recent family members from non-COVID related diseases. Her last menstrual period was recent. It was not late. She has had difficulty with getting and denies any chance of at this time. A stat qualitative serum was done which was negative. She denies chest pain. History obtained from:: Patient and medical records - Diagnosis/Plan (1) Acute respiratory failure with hypoxemia Is this a current diagnosis for this admission?: Yes (2) COVID-19 virus infection Is this a current diagnosis for this admission?: Yes (3) Pneumonia due to COVID-19 virus Is this a current diagnosis for this admission?: Yes (4) Obesity (BMI 35.0-39.9 without comorbidity) Is this a current diagnosis for this admission?: Yes (5) Generalized anxiety disorder Is this a current diagnosis for this admission?: Yes Plan Summary: 04.20.2020: Respiratory: Patient has acute hypoxic respiratory failure with ARDS from SARS COVID-19 viral infection. Her chest x-ray is consistent with this but not c onsistent with pneumonia. Have discontinued antibiotics. Treatment for this novel disease is still experimental and there is not 1 treatment that is currently accepted. There has been success with proning and we will institute this. Numerous institutions and guidelines suggest dexamethasone and we have had anecdotal success with this drug. Due to the novel nature of this disease and multiple experimental studies I have placed a call to [facility] which is our local [facility]. Patient is obese and is concerned about lying on her abdomen. However, I have had a lengthy discussion with her to encourage prone positioning or at least semiprone positioning which is been shown to improve hypoxia. Will place her on supplemental vitamin D, Lovenox therapeutic treatment as well as zinc, Lipitor and thiamine. We have discussed the possibility of the need for mechanical ventilation and because of her increased work of breathing feel that it is necessary to place her in the ICU. Have contacted [facility] and currently awaiting Remdisivir and application for convalescent Plasma Therapy has been initiated through the [facility] IRB and Clinical study site. Patient was counseled on the possible complications risks and benefits. She has agreed and has signed consent. We are waiting blood typing and other labs for official registration. During her time in the ICU she was valuated multiple times. She was placed prone and has had significant improvement in her oxygen saturation. We will continue to monitor. Infectious: Please see respiratory above. We will check procalcitonin and follow CRP, d-dimer and interleukin levels as well as ferritin. Her ferritin levels are low in comparison to most severe COVID cases which is somewhat prognostically encouraging. Cardiac: At this point no active issues. Expect some degree of tachycardia with this disease. Will watch for myocarditis and evidence of LV dysfunction. Hematologic: Will follow D-dimer and continue heparin therapeutically. Will also follow Ferritin as well as CRP. Endocrine: We will monitor glucose on steroid therapy and check TSH preemptively Renal: Renal function is intact. Will monitor for failure and dehydration Metabolic: We will continue to keep magnesium high normal which has been shown to be helpful in respiratory diseases especially those related to SARS and COVID Alimentary: No active issues continue to monitor Sedation/analgesia: Patient has known anxiety disorder but she currently is stable on current regimen. Will need to monitor for worsening anxiety related to hypoxia. Lines/Tubes: Peripheral IVs only and patient has Gonzalez placed for urine monitoring while prone Other/family: Patient has a 6-year-old son at home who is currently asymptomatic. He is being cared for by [id number]. Past Medical History Cardiac Medical History: Denies: Atrial Fibrillation, Coronary Artery Disease, DVT, Hyperlipidema, H ypertension, Pulmonary Embolism Pulmonary Medical History: Reports: Pneumonia Denies: Asthma, Chronic Obstructive Pulmonary Disease (COPD) EENT Medical History: Denies: Cataracts, Ears - Hearing aids Neurological Medical History: Denies: Multiple Sclerosis, Seizures Endocrine Medical History: Denies: Diabetes Mellitus Type 1, Diabetes Mellitus Type 2, Hyperthyroidism, Hypothyroidism Renal/ Medical History: Denies: Chronic Kidney Disease, Nephrolithiasis Malignancy Medical History: Reports: None GI Medical History: Denies: Cirrhosis, Crohn's Disease, Gastroesophageal Reflux Disease, Hepatitis, Peptic Ulcer Disease, Ulcerative Colitis Musculoskeltal Medical History: Denies: Arthritis, Gout Skin Medical History: Denies: Eczema, Psoriasis Psychiatric Medical History: Reports: General Anxiety Disorder Denies: Alcohol Dependency, Depression, Substance Abuse, Tobacco Dependency Traumatic Medical History: Reports: None Hematology: Denies: Anemia, Bleeding Tendencies Infectious Medical History: Reports: None Past Surgical History Past Surgical History: Reports: Section, Tonsillectomy Social/Family History - Social History Lives with: Spouse/Significant other Smoking Status: Former Smoker Frequency of Alcohol Use: Occasional Hx Recreational Drug Use: No Drugs: None Hx Prescription Drug Abuse: No - Medication/Allergies Home Medications: Multivitamin [Tab-A-Janice (Multiple Vitamin) Tablet] 1 tab PO DAILY 04/19/20 Venlafaxine HCl ER [Effexor Xr 37.5 mg Cap.sr] 37.5 mg PO DAILY 04/19/20 Allergies/Adverse Reactions: No Known Allergies Allergy (Verified 04/18/20 22:03) Review of Systems Constitutional: PRESENT: as per HPI Cardiovascular: PRESENT: as per HPI Respiratory: PRESENT: as per HPI Gastrointestinal: PRESENT: as per HPI Genitourinary: PRESENT: as per HPI Neurological: PRESENT: weakness Physical Exam Vital Signs: Temp Pulse Resp BP Pulse Ox 98.8 F 78 32 H 117/67 90 L 04/20/20 08:38 04/20/20 08:50 04/20/20 12:07 04/20/20 08:38 04/20/20 12:07 Intake & Output 04/19/20 04/20/20 04/21/20 06:59 06:59 06:59 Intake Total 1120 3170 1378 Output Total 570 Balance 1120 2600 1378 Weight 117.9 kg 117.9 kg Weight/Height Weight 117.9 kg Height 5 ft 7 in General appearance: PRESENT: obese, other - Not intubated, obese appearing 39-year-old female with moderate respiratory distress. She is awake alert frantz ented x3 Head exam: PRESENT: normocephalic Eye exam: PRESENT: conjunctival injection, EOMI, PERRLA. ABSENT: nystagmus, scleral icterus Ear exam: ABSENT: bleeding, drainage Mouth exam: PRESENT: dry mucosa, neck supple, tongue midline Respiratory exam: PRESENT: accessory muscle use, symmetrical, tachypnea, other - Lung sounds not auscultated secondary to the confines of PPE and poor auditory capability of disposable stethoscope. ABSENT: chest wall tenderness, prolonged expiratory phas, unlabored Cardiovascular exam: PRESENT: other - Relative bradycardia with heart rate of 72. When prone heart rate at 98 for short period of time. Heart sounds not auscultated secondary to the confines of PPE and poor auditory capability of disposable stethoscope Pulses: PRESENT: +1 pedal pulses bilateral Vascular exam: PRESENT: normal capillary refill. ABSENT: pallor GI/Abdominal exam: PRESENT: soft, other - Lung sounds not auscultated secondary to the confines of PPE and poor auditory capability of disposable stethoscope stomach. ABSENT: ascites, distended, firm, guarding, mass, organolmegaly, tenderness Rectal exam: PRESENT: deferred Gentrourinary exam: PRESENT: indwelling catheter Extremities exam: ABSENT: joint swelling, pedal edema Musculoskeletal exam: PRESENT: normal inspection. ABSENT: deformity, dislocation Neurological exam: PRESENT: alert, awake, oriented to person, oriented to place, oriented to time, oriented to situation, CN II-XII grossly intact, other - No focal motor or sensory deficits. ABSENT: motor sensory deficit Psychiatric exam: PRESENT: anxious Focused psych exam: PRESENT: pressured speech, restlessness Skin exam: PRESENT: dry, intact, normal color. ABSENT: cyanosis, erythema, jaundice, pallor, petechiae Tubes/Lines: PRESENT: Other - Gonzalez type urinary catheter Laboratory/Radiographs Laboratory Results: 04/20/20 04:38 04/20/20 04:38 04/19/20 04/20/20 04/20/20 15:45 03:50 04:38 WBC 7.1 RBC 4.32 Hgb 11.6 L Hct 34.2 L MCV 79 L MCH 26.9 L MCHC 34.0 RDW 15.9 H Plt Count 255 Carbonic Acid 1.02 L HCO3/H2CO3 Ratio 23:1 ABG pH 7.47 H ABG pCO2 33.8 L ABG pO2 47.0 L ABG HCO3 24.0 ABG O2 Saturation 85.9 L ABG Base Excess 0.8 FiO2 5L Sodium Potassium Chloride Carbon Dioxide Anion Gap BUN Creatinine Est GFR ( Amer) Glucose Calcium Phosphorus Magnesium Ferritin C-Reactive Protein TSH Serum HCG, Qual Urine Color YELLOW Urine Appearance SLIGHTLY-CLOUDY Urine pH 6.0 Ur Specific [place] 1.012 Urine Protein NEGATIVE Urine Glucose (UA) NEGATIVE Urine Ketones NEGATIVE Urine Blood MODERATE H Urine Nitrite NEGATIVE Ur Leukocyte Esterase NEGATIVE Urine WBC (Auto) 3 Urine RBC (Auto) 7 04/20/20 04/20/20 04/20/20 04:38 04:38 04:38 WBC RBC Hgb Hct MCV MCH MCHC RDW Plt Count Carbonic Acid HCO3/H2CO3 Ratio ABG pH ABG pCO2 ABG pO2 ABG HCO3 ABG O2 Saturation ABG Base Excess FiO2 Sodium 138.8 Potassium 3.9 Chloride 107 Carbon Dioxide 24 Anion Gap 8 BUN 3 L Creatinine 0.49 L Est GFR ( Amer) > 60 Glucose 161 H Calcium 8.1 L Phosphorus 2.8 Magnesium 2.2 Ferritin 106.00 C-Reactive Protein 118.5 H TSH Serum HCG, Qual NEGATIVE Urine Color Urine Appearance Urine pH Ur Specific [place] Urine Protein Urine Glucose (UA) Urine Ketones Urine Blood Urine Nitrite Ur Leukocyte Esterase Urine WBC (Auto) Urine RBC (Auto) 04/20/20 04/20/20 04:38 09:10 WBC RBC Hgb Hct MCV MCH MCHC RDW Plt Count Carbonic Acid 1.14 HCO3/H2CO3 Ratio 22:1 ABG pH 7.45 ABG pCO2 37.9 ABG pO2 50.8 L ABG HCO3 25.7 H ABG O2 Saturation 87.7 L ABG Base Excess 1.8 FiO2 90% Sodium Potassium Chloride Carbon Dioxide Anion Gap BUN Creatinine Est GFR ( Amer) Glucose Calcium Phosphorus Magnesium Ferritin C-Reactive Protein TSH 0.40 L Serum HCG, Qual Urine Color Urine Appearance Urine pH Ur Specific [place] Urine Protein Urine Glucose (UA) Urine Ketones Urine Blood Urine Nitrite Ur Leukocyte Esterase Urine WBC (Auto) Urine RBC (Auto) Impressions: Chest X-Ray 04/18/20 21:55 IMPRESSION: 1. Interval increase in bibasilar opacities concerning for bilateral pneumonic process. Bilateral pneumonia could produce this appearance. All labs, radiographs, diagnostic studies and EKGs were personally reviewed: Yes In addition, reports of radiographic and diagnostic studies were read: Yes Critical Time Critical Time (minutes): 100 - Includes time spent for discussion with multiple outside institutions and consultants as well as application for Convalescent Plasma and Remdisivir -: The care of a critically ill patient is dynamic. This note represents a static moment in the admission process. Orders and treatments may be given simultaneously and urgently, and time is not containers sales representative of the treatment process. This patient requires Critical Care secondary to life threatening organ or limb dysfunction. Without Critical Care services, the patient is at risk for increased mortality and morbidity.
[2020-04-20] MEDS ORDERED: NORMAL SALINE 250 ML IV PRN ×2 (17:20)
[2020-04-20] MEDS: THIAMINE HCL INJ 200 MG/2 ML VIAL IV SCH (18:19)
[2020-04-20] MEDS: ASCORBIC ACID 500 MG TABLET PO SCH (18:20)
[2020-04-20] MEDS ORDERED: REMDESIVIR (EUA) 200 MG in NORMAL SALINE 250 ML IV ONE (18:30)
[2020-04-20] MEDS ORDERED: REMDESIVIR 100 MG IV ONE (18:30)
[2020-04-20] MEDS: ATORVASTATIN CALCIUM 80 MG TABLET PO SCH (21:31)
[2020-04-20] MEDS: GUAIFENESIN 600 MG TABLET.SA PO SCH (21:31)
[2020-04-20] MEDS: MELATONIN 5 MG TABLET PO PRN (21:31)
[2020-04-21] MEDS: ASCORBIC ACID 500 MG TABLET PO SCH ×5 (00:45→23:10)
[2020-04-21] MEDS ORDERED: MORPHINE SULFATE 10 MG/ML INJ ONE (01:56)
[2020-04-21] MEDS ORDERED: ONDANSETRON HCL INJ/PF 4 MG/2 ML SDV ONE (02:28)
[2020-04-21] MEDS ORDERED: MORPHINE SULFATE 10 MG/ML INJ IV ONE (02:30)
[2020-04-21] MEDS ORDERED: ONDANSETRON HCL INJ/PF 4 MG/2 ML SDV IV ONE (02:35)
[2020-04-21 04:25] LABS: ABSOLUTE LYMPHOCYTES (AUTO) 1.3 10^3/uL (0.5-4.7); ABSOLUTE MONOCYTES (AUTO) 0.4 10^3/uL (0.1-1.4); ABSOLUTE NEUT (AUTO) 6.6 10^3/uL (1.7-8.2); BASOPHILS % (AUTO) 0.4 % (0-2); HEMATOCRIT 35.5 % (36.0-47.0); HEMOGLOBIN 11.9 g/dL (12.0-15.5); LYMPHOCYTES % (AUTO) 15.1 % (13-45); MEAN CORPUSCULAR HEMOGLOBIN 26.4 pg (27.0-33.4); MEAN CORPUSCULAR HGB CONC 33.5 g/dL (32.0-36.0); MEAN CORPUSCULAR VOLUME 79 fl (80-97); MONOCYTES % (AUTO) 4.6 % (3-13); PLATELET COUNT 324 10^3/uL (150-450); RED BLOOD COUNT 4.51 10^6/uL (3.72-5.28); RED CELL DISTRIBUTION WIDTH 15.7 % (11.5-14.0); SEGMENTED NEUTROPHILS % (AUTO) 79.9 % (42-78); TOTAL CELLS COUNTED % (AUTO) 100 %; WHITE BLOOD COUNT 8.3 10^3/uL (4.0-10.5)
[2020-04-21 04:40] LABS: INTERNATIONAL RATION (INR) 1.06; PROTHROMBIN TIME 13.8 SEC (11.4-15.4)
[2020-04-21 04:44] LABS: ALBUMIN 3.1 g/dL (3.5-5.0); ALKALINE PHOSPHATASE 55 U/L (38-126); ANION GAP 5 (5-19); ASPARTATE AMINO TRANSFERASE 37 U/L (14-36); BILIRUBIN,TOTAL 0.4 mg/dL (0.2-1.3); BLOOD UREA NITROGEN 6 mg/dL (7-20); CALCIUM 8.4 mg/dL (8.4-10.2); CARBON DIOXIDE 25 mmol/L (22-30); CHLORIDE 111 mmol/L (98-107); CREATINE KINASE 99 U/L (30-135); GLUCOSE 134 mg/dL (75-110); PHOSPHORUS 3.5 mg/dL (2.5-4.5); POTASSIUM 3.8 mmol/L (3.6-5.0); TOTAL PROTEIN 6.1 g/dL (6.3-8.2)
[2020-04-21] MEDS: THIAMINE HCL INJ 200 MG/2 ML VIAL IV SCH ×2 (08:08→18:31)
[2020-04-21] MEDS: ALPRAZOLAM 0.5 MG TABLET SL PRN ×2 (10:43→22:57)
[2020-04-21] MEDS: VENLAFAXINE HCL 75 MG TABLET PO SCH (10:43)
[2020-04-21] MEDS: GUAIFENESIN 600 MG TABLET.SA PO SCH (10:43)
[2020-04-21] MEDS: CHOLECALCIFEROL (D3) 1,000 UNIT (25 MCG) TABLET PO SCH (10:44)
[2020-04-21] MEDS: DEXAMETHASONE SOD PHOSPHATE INJ 4 MG/1 ML VIAL IV SCH ×2 (10:44→22:57)
[2020-04-21] MEDS: ZINC SULFATE 220 MG CAPSULE PO SCH (10:44)
[2020-04-21] MEDS ORDERED: THIAMINE HCL INJ 200 MG/2 ML VIAL IV ONE (11:00)
[2020-04-21] MEDS: FAMOTIDINE 20 MG TABLET PO SCH ×2 (11:47→22:58)
[2020-04-21] MEDS: ENOXAPARIN SODIUM INJ 120 MG/0.8 ML DISP.SYRIN SUBCUT SCH ×2 (11:48→22:59)
[2020-04-21] MEDS ORDERED: LORAZEPAM 1 MG TABLET PO ONE (16:23)
[2020-04-21] MEDS: REMDESIVIR (EUA) 100 MG in NORMAL SALINE 250 ML IV SCH (17:57)
[2020-04-21] MEDS ORDERED: REMDESIVIR (EUA) 100 MG in NORMAL SALINE 250 ML IV SCH (18:00)
--- NOTE | 2020-04-21 18:44 | PDOC CRITICAL CARE PROG REPORT ---
General Date:: 04/21/20 ICU Day:: 2 Hospital Day:: 3 Resuscitation Status: Full Code Medical Power of [employer] Agent Team Member: Events in the past 12 to 24 Hours:: 04.21.2020: Patient was proned yesterday on high flow nasal cannula with dramatic improvement in SaO2 and respiratory distress. She intermittently becomes claustrophobic and anxious and will not remain in a prone state for prolonged period of time. Hemodynamically she has not been labile. She received convalescent COVID plasma last evening as well as Remdesivir. No reactions to either treatments occurred. Patient has required anti-anxiety agents to assist with treatment. Review of systems relevant to events:: 04.21.2020: No abdominal pain or chest pain. She does endorse claustrophobia when lying prone at times. She also feels lonely,scared and anxious. 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 Her chest x-ray is slightly worse on yesterday's examination. No reactions to CCP or Remdesivir. No neurological dysfunction. She occasionally has soft- liquid bowel movements with excessive coughing. Reason for ICU Addmission:: Acute hypoxic respiratory failure, [id number] positive - Medications: Medications reviewed and adjusted accordingly: Yes Vasopressors:: None Sedation:: Anti-anxiety agents Physical Exam Vital Signs: Temp Pulse Resp BP Pulse Ox 99.3 F 55 L 21 H 124/62 100 04/21/20 08:00 04/21/20 16:00 04/21/20 18:00 04/21/20 17:55 04/21/20 18:00 Intake & Output 04/20/20 04/21/20 04/22/20 06:59 06:59 06:59 Intake Total 3170 1688 Output Total 570 835 750 Balance 2600 853 -750 Weight 117.9 kg 124.5 kg 124.5 kg Weight/Height Weight 124.5 kg Height 5 ft 7 in General appearance: PRESENT: mild distress, morbidly obese, well-developed, well-nourished Exam: Not intubated, obese appearing nontoxic noticeably dyspneic 39-year-old female, minimal distress Head exam: PRESENT: atraumatic, normocephalic Eye exam: PRESENT: conjunctiva pink, EOMI, PERRLA. ABSENT: conjunctival injection, nystagmus, scleral icterus Ear exam: PRESENT: normal external ear exam Mouth exam: PRESENT: moist, neck supple Neck exam: PRESENT: full ROM. ABSENT: JVD, lymphadenopathy, meningismus, thyromegaly, tracheal deviation Respiratory exam: PRESENT: tachypnea, other - Lung sounds not auscultated secondary to the confines of PPE and poor auditory capability of disposable st ethoscope. ABSENT: accessory muscle use, unlabored Cardiovascular exam: PRESENT: RRR, other - Heart sounds not auscultated secondary to the confines of PPE and poor auditory capability of disposable stethoscope. ABSENT: bradycardia Pulses: PRESENT: +1 pedal pulses bilateral GI/Abdominal exam: PRESENT: soft, other - Gastric sounds not auscultated secondary to the confines of PPE and poor auditory capability of disposable stethoscope. ABSENT: ascites, firm, guarding, mass, organolmegaly, tenderness Rectal exam: PRESENT: deferred Gentrourinary exam: PRESENT: indwelling catheter Extremities exam: PRESENT: pedal edema Musculoskeletal exam: PRESENT: normal inspection. ABSENT: deformity, dislocation Neurological exam: PRESENT: alert, awake, oriented to person, oriented to place, oriented to time, oriented to situation, CN II-XII grossly intact, motor sensory deficit Psychiatric exam: PRESENT: anxious Focused psych exam: ABSENT: pressured speech, psychomotor agitation, restlessness Skin exam: PRESENT: dry, intact, warm. ABSENT: cyanosis, rash Tubes/Lines: PRESENT: Other - Gonzalez type urinary catheter just finishing MiraLAX no Laboratory/Radiographs Laboratory Results: 04/21/20 03:50 04/21/20 03:50 04/20/20 04/21/20 04/21/20 16:10 03:50 03:50 WBC 8.3 RBC 4.51 Hgb 11.9 L Hct 35.5 L MCV 79 L MCH 26.4 L MCHC 33.5 RDW 15.7 H Plt Count 324 Seg Neutrophils % 79.9 H Sodium 141.3 Potassium 3.8 Chloride 111 H Carbon Dioxide 25 Anion Gap 5 BUN 6 L Creatinine 0.47 L Est GFR ( Amer) > 60 Glucose 134 H Lactic Acid Calcium 8.4 Phosphorus 3.5 Magnesium 2.4 H Total Bilirubin 0.4 AST 37 H Alkaline Phosphatase 55 Total Protein 6.1 L Albumin 3.1 L Blood Type A NEGATIVE Antibody Screen NEGATIVE 04/21/20 03:50 WBC RBC Hgb Hct MCV MCH MCHC RDW Plt Count Seg Neutrophils % Sodium Potassium Chloride Carbon Dioxide Anion Gap BUN Creatinine Est GFR ( Amer) Glucose Lactic Acid 1.0 Calcium Phosphorus Magnesium Total Bilirubin AST Alkaline Phosphatase Total Protein Albumin Blood Type Antibody Screen 04/21/20 03:50 Creatine Kinase 99 Impressions: Chest X-Ray 04/20/20 00:00 IMPRESSION: Extensive bilateral airspace disease which has progressed when compared to prior study. This could represent atypical pneumonia or less likely edema. All labs, radiographs, diagnostic studies and EKGs were personally reviewed: Yes In addition, reports of radiographic and diagnostic studies were read: Yes Assessment and Plan - Diagnosis (1) Acute respiratory failure with hypoxemia Is this a current diagnosis for this admission?: Yes (2) COVID-19 virus infection Is this a current diagnosis for this admission?: Yes (3) Pneumonia due to COVID-19 virus Is this a current diagnosis for this admission?: Yes (4) Obesity (BMI 35.0-39.9 without comorbidity) Is this a current diagnosis for this admission?: Yes (5) Generalized anxiety disorder Is this a current diagnosis for this admission?: Yes Plan Summary: Patient continues to remain stable with current treatment. We have spent a significant amount of time with her today to encourage her to remain prone. We will continue current therapy. She is currently registered under the [facility] CCP therapy and also is a candidate for continued Remdesivir. She will need to be maintained in the ICU so that appropriate pronating can be done in evaluation for worsening trajectory. She has had day 4-5 since her diagnosis but had symptoms prior to that. Hopeful that we have reached a plateau phase and will continue to improve. She still is noticeably dyspneic and oxygen saturations do diminish with activity. Have discussed the prognosis of this disease and the persistence of hypoxia and cough for some time. Have introduced sublingual Xanax and will give her 1 dose of Ativan in hopes to allay her anxiety. I have also discussed the possibility of using her phone and watching movies, face timing with family and other activities while lying prone to help with anxiety and claustrophobia. We discussed the imperative nature of pronating and its overall improvement and she is willing to continue to attempt to do so. Continue to monitor for any complications related to treatment. The Decadron and supplemental therapy as noted. Critical Time Critical Time (minutes): 50 Level of Care: ICU Anticipated discharge: Acute Rehab Anticipated DC Timeframe: within 72 hours -: 1. The care of a critical patient is a dynamic process. This note is a lifeline representatives synopsis but static in nature. The timeframe for treatments given in order is not necessarily the actual time these treatments may have been done. 2. This patient requires critical care secondary to ongoing requirements for therapy not offered or safe outside the critical care environment. Transfer to a lower level of care will result in altered life or limb morbidity and mortality. 3. Multidisciplinary rounds completed. 4. ABCDE bundle addressed.
[2020-04-21] MEDS: ATORVASTATIN CALCIUM 80 MG TABLET PO SCH (22:59)
[2020-04-21] MEDS: MELATONIN 5 MG TABLET PO SCH (23:00)
[2020-04-22 04:48] LABS: ABSOLUTE LYMPHOCYTES (AUTO) 1.6 10^3/uL (0.5-4.7); ABSOLUTE MONOCYTES (AUTO) 0.8 10^3/uL (0.1-1.4); ABSOLUTE NEUT (AUTO) 7.2 10^3/uL (1.7-8.2); BASOPHILS % (AUTO) 0.3 % (0-2); HEMATOCRIT 35.5 % (36.0-47.0); LYMPHOCYTES % (AUTO) 16.6 % (13-45); MEAN CORPUSCULAR HEMOGLOBIN 26.6 pg (27.0-33.4); MEAN CORPUSCULAR HGB CONC 33.7 g/dL (32.0-36.0); MEAN CORPUSCULAR VOLUME 79 fl (80-97); MONOCYTES % (AUTO) 8.1 % (3-13); PLATELET COUNT 382 10^3/uL (150-450); RED BLOOD COUNT 4.51 10^6/uL (3.72-5.28); RED CELL DISTRIBUTION WIDTH 15.4 % (11.5-14.0); TOTAL CELLS COUNTED % (AUTO) 100 %; WHITE BLOOD COUNT 9.6 10^3/uL (4.0-10.5)
[2020-04-22 04:56] LABS: INTERNATIONAL RATION (INR) 1.14; PARTIAL THROMBOPLASTIN TIME 36.2 SEC (23.5-35.8); PROTHROMBIN TIME 14.7 SEC (11.4-15.4)
[2020-04-22 04:59] LABS: D-DIMER 0.33 ug/mL (0.00-0.50)
[2020-04-22 05:09] LABS: BLOOD UREA NITROGEN 12 mg/dL (7-20); CALCIUM 8.7 mg/dL (8.4-10.2); GLUCOSE 121 mg/dL (75-110)
[2020-04-22 05:10] LABS: ANION GAP 7 (5-19); C-REACTIVE PROTEIN 37.3 mg/L (<10.0); CARBON DIOXIDE 25 mmol/L (22-30); CHLORIDE 109 mmol/L (98-107); PHOSPHORUS 3.9 mg/dL (2.5-4.5)
[2020-04-22] MEDS: ASCORBIC ACID 500 MG TABLET PO SCH ×4 (05:22→23:14)
[2020-04-22] MEDS: THIAMINE HCL INJ 200 MG/2 ML VIAL IV SCH ×2 (05:24→18:10)
[2020-04-22 05:37] LABS: POTASSIUM 4.1 mmol/L (3.6-5.0)
[2020-04-22] MEDS: VENLAFAXINE HCL 75 MG TABLET PO SCH (09:33)
[2020-04-22] MEDS: CHOLECALCIFEROL (D3) 1,000 UNIT (25 MCG) TABLET PO SCH (09:33)
[2020-04-22] MEDS: ZINC SULFATE 220 MG CAPSULE PO SCH (09:33)
[2020-04-22] MEDS: ENOXAPARIN SODIUM INJ 120 MG/0.8 ML DISP.SYRIN SUBCUT SCH ×2 (09:34→23:18)
[2020-04-22] MEDS: DEXAMETHASONE SOD PHOSPHATE INJ 4 MG/1 ML VIAL IV SCH (09:34)
[2020-04-22] MEDS: ALPRAZOLAM 0.5 MG TABLET SL PRN ×2 (09:34→23:16)
[2020-04-22] MEDS: FAMOTIDINE 20 MG TABLET PO SCH ×2 (09:34→23:17)
[2020-04-22] MEDS: REMDESIVIR (EUA) 100 MG in NORMAL SALINE 250 ML IV SCH (18:10)
--- NOTE | 2020-04-22 18:33 | PDOC CRITICAL CARE PROG REPORT ---
General Date:: 04/22/20 ICU Day:: 3 Hospital Day:: 4 Resuscitation Status: Full Code Medical Power of [employer] Worker: Events in the past 12 to 24 Hours:: 04.22.2020: Patient was able to prone last evening. She is improved and is now sitting upright in chair. Facemask oxygen in combination with high flow has now been discontinued and she is now on reduced high flow nasal cannula protocol. She still has slight shortness of breath with dyspnea on conversation but improved from yesterday. 04.21.2020: Patient was proned yesterday on high flow nasal cannula with dramatic improvement in SaO2 and respiratory distress. She intermittently becomes claustrophobic and anxious and will not remain in a prone state for prolonged period of time. Hemodynamically she has not been labile. She received convalescent COVID plasma last evening as well as Remdesivir. No reactions to either treatments occurred. Patient has required anti-anxiety agents to assist with treatment. Review of systems relevant to events:: 04.22.2020: No abdominal pain or chest pain. Anxiety has improved and she feels overall improved. Tolerating diet this morning. No complications related to plasma therapy or Remdesivir. 04.21.2020: No abdominal pain or chest pain. She does endorse claustrophobia when lying prone at times. She also feels lonely,scared and anxious. 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 Her chest x-ray is slightly worse on yesterday's examination. No reactions to CCP or Remdesivir. No neurological dysfunction. She occasionally has soft- liquid bowel movements with excessive coughing. Reason for ICU Addmission:: Acute hypoxic respiratory failure, SARs-CoViD19 positive Physical Exam Vital Signs: Temp Pulse Resp BP Pulse Ox 97.6 F 81 16 103/66 94 04/22/20 12:00 04/22/20 16:00 04/22/20 17:00 04/22/20 16:55 04/22/20 17:00 Intake & Output 04/21/20 04/22/20 04/23/20 06:59 06:59 06:59 Intake Total 1688 370 Output Total 147 29200 200 Balance 544 -46566 -200 Weight 124.5 kg 118.7 kg Weight/Height Weight 118.7 kg Height 5 ft 7 in General appearance: PRESENT: no acute distress, cooperative, morbidly obese Exam: Pleasant, nontoxic ill-appearing 39-year-old female no active distress. She is awake, oriented x4 Eye exam: PRESENT: conjunctiva pink, EOMI, PERRLA. ABSENT: conjunctival injection, nystagmus, scleral icterus Mouth exam: PRESENT: moist, neck supple Teeth exam: ABSENT: edentulous, poor dentation Neck exam: PRESENT: full ROM. ABSENT: JVD, lymphadenopathy, meningismus, tenderness, thyromegaly, tracheal deviation Respiratory exam: PRESENT: tachypnea, unlabored, other - Lung sounds not auscultated secondary to the confines of PPE and poor auditory capability of disposable stethoscope. ABSENT: accessory muscle use, prolonged expiratory phas, retraction Cardiovascular exam: PRESENT: RRR, other - Heart sounds not auscultated secondary to the confines of PPE and poor auditory capability of disposable stethoscope. ABSENT: irregular rhythm, tachycardia Pulses: PRESENT: +1 pedal pulses bilateral Vascular exam: PRESENT: normal capillary refill, pallor GI/Abdominal exam: PRESENT: soft, other - Gastric sounds not auscultated secondary to the confines of PPE and poor auditory capability of disposable stethoscope. ABSENT: ascites, firm, guarding, organolmegaly, tenderness Rectal exam: PRESENT: deferred Gentrourinary exam: ABSENT: indwelling catheter Musculoskeletal exam: ABSENT: deformity, dislocation Neurological exam: PRESENT: alert, awake, oriented to person, oriented to place, oriented to time, oriented to situation, CN II-XII grossly intact. ABSENT: motor sensory deficit, aphasic Psychiatric exam: PRESENT: appropriate affect. ABSENT: anxious Focused psych exam: ABSENT: pressured speech, psychomotor agitation, restlessness Skin exam: PRESENT: dry, intact, warm. ABSENT: cyanosis, rash Laboratory/Radiographs Laboratory Results: 04/22/20 04:11 04/22/20 04:11 04/22/20 04/22/20 04:11 04:11 WBC 9.6 RBC 4.51 Hgb 12.0 Hct 35.5 L MCV 79 L MCH 26.6 L MCHC 33.7 RDW 15.4 H Plt Count 382 Seg Neutrophils % 75.0 Sodium 140.6 Potassium 4.1 Chloride 109 H Carbon Dioxide 25 Anion Gap 7 BUN 12 Creatinine 0.50 L Est GFR ( Amer) > 60 Glucose 121 H Calcium 8.7 Phosphorus 3.9 Magnesium 2.3 Ferritin 118.00 C-Reactive Protein 37.3 H 04/21/20 03:50 Creatine Kinase 99 Impressions: Chest X-Ray 04/20/20 00:00 IMPRESSION: Extensive bilateral airspace disease which has progressed when compared to prior study. This could represent atypical pneumonia or less likely edema. All labs, radiographs, diagnostic studies and EKGs were personally reviewed: Yes In addition, reports of radiographic and diagnostic studies were read: Yes Assessment and Plan - Diagnosis (1) Acute respiratory failure with hypoxemia Is this a current diagnosis for this admission?: Yes (2) COVID-19 virus infection Is this a current diagnosis for this admission?: Yes (3) Pneumonia due to COVID-19 virus Is this a current diagnosis for this admission?: Yes (4) Obesity (BMI 35.0-39.9 without comorbidity) Is this a current diagnosis for this admission?: Yes (5) Generalized anxiety disorder Is this a current diagnosis for this admission?: Yes Plan Summary: 04.22.2020: Patient has improved dramatically in the last 24 hours. Oxygen therapy is weaning and she is now only on high flow nasal cannula with reduction in FiO2. Will continue to prone especially at night in hopes to able to be able to wean the high flow nasal cannula. She is feeling less anorexic. Continue steroid therapy and Remdesivir. Continue patient in negative airflow room Consideration for transfer in the next 12 to 24 hours if hypoxia approved and reduction in oxygen is able to be accomplished. Continue supportive care CRP continues to improve however ferritin remains elevated but not significant. D-dimer has improved as well. We will continue on Lovenox given its efficacy in COVID. If parameters remain improved tomorrow may be able to transition to prophylactic Lovenox treatment 04.21.2020: Patient continues to remain stable with current treatment. We have spent a significant amount of time with her today to encourage her to remain prone. We will continue current therapy. She is currently registered under the [facility] CCP therapy and also is a candidate for continued Remdesivir. She will need to be maintained in the ICU so that appropriate pronating can be done in evaluation for worsening trajectory. She has had day 4-5 since her diagnosis but had symptoms prior to that. Hopeful that we have reached a plateau phase and will continue to improve. She still is noticeably dyspneic and oxygen saturations do diminish with acti vity. Have discussed the prognosis of this disease and the persistence of hypoxia and cough for some time. Have introduced sublingual Xanax and will give her 1 dose of Ativan in hopes to allay her anxiety. I have also discussed the possibility of using her phone and watching movies, face timing with family and other activities while lying prone to help with anxiety and claustrophobia. We discussed the imperative nature of pronating and its overall improvement and she is willing to continue to attempt to do so. Continue to monitor for any complications related to treatment. The Decadron and supplemental therapy as noted. Critical Time Critical Time (minutes): 40 Level of Care: ICU Anticipated discharge: Home with Homehealth Anticipated DC Timeframe: within 72 hours -: 1. The care of a critical patient is a dynamic process. This note is a repres entative synopsis but static in nature. The timeframe for treatments given in order is not necessarily the actual time these treatments may have been done. 2. This patient requires critical care secondary to ongoing requirements for therapy not offered or safe outside the critical care environment. Transfer to a lower level of care will result in altered life or limb morbidity and mortality. 3. Multidisciplinary rounds completed. 4. ABCDE bundle addressed.
[2020-04-22] MEDS: MELATONIN 5 MG TABLET PO SCH (23:15)
[2020-04-22] MEDS: ATORVASTATIN CALCIUM 80 MG TABLET PO SCH (23:18)
[2020-04-22] MEDS: DEXAMETHASONE 4 MG TABLET PO SCH (23:18)
[2020-04-23] MEDS: ASCORBIC ACID 500 MG TABLET PO SCH ×4 (06:33→23:08)
[2020-04-23] MEDS: THIAMINE HCL INJ 200 MG/2 ML VIAL IV SCH (06:34)
[2020-04-23 06:42] LABS: HEMATOCRIT 35.6 % (36.0-47.0); HEMOGLOBIN 12.1 g/dL (12.0-15.5); MEAN CORPUSCULAR HEMOGLOBIN 26.5 pg (27.0-33.4); MEAN CORPUSCULAR VOLUME 78 fl (80-97); PLATELET COUNT 414 10^3/uL (150-450); RED BLOOD COUNT 4.56 10^6/uL (3.72-5.28); RED CELL DISTRIBUTION WIDTH 15.2 % (11.5-14.0); WHITE BLOOD COUNT 9.3 10^3/uL (4.0-10.5)
[2020-04-23 06:43] LABS: INTERNATIONAL RATION (INR) 1.11; PROTHROMBIN TIME 14.4 SEC (11.4-15.4)
[2020-04-23 06:44] LABS: PARTIAL THROMBOPLASTIN TIME 36.3 SEC (23.5-35.8)
[2020-04-23 06:47] LABS: D-DIMER 0.36 ug/mL (0.00-0.50)
[2020-04-23 07:05] LABS: ALBUMIN 3.3 g/dL (3.5-5.0); ALKALINE PHOSPHATASE 53 U/L (38-126); ANION GAP 5 (5-19); ASPARTATE AMINO TRANSFERASE 61 U/L (14-36); BILIRUBIN,TOTAL 0.4 mg/dL (0.2-1.3); BLOOD UREA NITROGEN 12 mg/dL (7-20); C-REACTIVE PROTEIN 17.8 mg/L (<10.0); CALCIUM 8.8 mg/dL (8.4-10.2); CARBON DIOXIDE 26 mmol/L (22-30); CHLORIDE 108 mmol/L (98-107); GLUCOSE 124 mg/dL (75-110); PHOSPHORUS 4.1 mg/dL (2.5-4.5); POTASSIUM 4.1 mmol/L (3.6-5.0); TOTAL PROTEIN 6.5 g/dL (6.3-8.2)
[2020-04-23 07:13] LABS: ABSOLUTE LYMPHOCYTES# (MANUAL) 2.3 10^3/uL (0.5-4.7); ABSOLUTE MONOCYTES # (MANUAL) 0.5 10^3/uL (0.1-1.4); BAND NEUTROPHILS % (MANUAL) 1 % (3-5); BASOPHILS % (MANUAL) 0 % (0-2); EOSINOPHILS % (MANUAL) 0 % (0-6); LYMPHOCYTES % (MANUAL) 23 % (13-45); MONOCYTES % (MANUAL) 5 % (3-13); SEGMENTED NEUTROPHILS % (MAN) 66 % (42-78); TOTAL CELLS COUNTED 100
[2020-04-23 07:16] LABS: ANISOCYTOSIS SLIGHT; TOXIC GRANULATION SLIGHT; TOXIC VACUOLATION PRESENT
[2020-04-23 07:17] LABS: BURR CELLS SLIGHT; PLATELET COMMENT INCREASED; POLYCHROMASIA SLIGHT; TEAR DROP CELLS SLIGHT
[2020-04-23 07:18] LABS: MYELOCYTES % (MANUAL) 1 % (0); PROMYELOCYTES % (MANUAL) 2 % (0)
[2020-04-23] MEDS: CHOLECALCIFEROL (D3) 1,000 UNIT (25 MCG) TABLET PO SCH (10:31)
[2020-04-23] MEDS: ZINC SULFATE 220 MG CAPSULE PO SCH (10:31)
[2020-04-23] MEDS: FAMOTIDINE 20 MG TABLET PO SCH ×2 (10:31→21:36)
[2020-04-23] MEDS: VENLAFAXINE HCL 37.5 MG CAP.SR.24H PO SCH (10:31)
[2020-04-23] MEDS: ENOXAPARIN SODIUM INJ 120 MG/0.8 ML DISP.SYRIN SUBCUT SCH (10:32)
[2020-04-23] MEDS: DEXAMETHASONE 4 MG TABLET PO SCH ×2 (10:32→21:36)
--- NOTE | 2020-04-23 10:49 | RADIOLOGY REPORT (SQ) ---
EXAM DESCRIPTION: CHEST SINGLE VIEW IMAGES COMPLETED DATE/TIME: 04/23/2020 7:03 am REASON FOR STUDY: Covid Pneumonia COMPARISON: 04/20/2020 NUMBER OF VIEWS: One view. TECHNIQUE: Single frontal radiographic image of the chest acquired. LIMITATIONS: Positioning. FINDINGS: LUNGS AND PLEURA: Improved aeration with residual airspace disease primarily in the lung b ases. MEDIASTINUM AND HEART: Stable heart size and mediastinal structures. BONY STRUCTURES: No acute findings. HARDWARE: None. OTHER: No other significant finding. IMPRESSION: Improving pneumonia. TECHNICAL DOCUMENTATION: JOB ID: [id number] Reading location - IP[facility]workstation name: [email or web address]
[2020-04-23 14:23] LABS: PATH REVIEW PATHOLOGIST REVIEWED
--- NOTE | 2020-04-23 15:42 | PDOC CRITICAL CARE PROG REPORT ---
General Date:: 04/23/20 ICU Day:: 4 Hospital Day:: 5 Resuscitation Status: Full Code Medical Power of Clip Bolter And Wrapper: Events in the past 12 to 24 Hours:: 04.23.2020: Patient continues to improve nasal cannula without hypoxia. She does still have significant dyspnea with exertion severe and certainly improved She is tolerating a diet and has no further anorexia. She is able to taste. 04.22.2020: Patient was able to prone last evening. She is improved and is now sitting upright in chair. Facemask oxygen in combination with high flow has now been discontinued and she is now on reduced high flow nasal cannula protocol. She still has slight shortness of breath with dyspnea on conversation but improved from yesterday. 04.21.2020: Patient was proned yesterday on high flow nasal cannula with dramatic improvement in SaO2 and respiratory distress. She intermittently becomes claustrophobic and anxious and will not remain in a prone state for prolonged period of time. Hemodynamically she has not been labile. She received convalescent COVID plasma last evening as well as Remdesivir. No reactions to either treatments occurred. Patient has required anti-anxiety agents to assist with treatment. Review of systems relevant to events:: 04.23.2020: Did not require prone positioning and remained upright in a chair hypoxia. Chest x-ray improved. Inflammatory markers improved as well as d- dimer. No bleeding on treatment dose Lovenox. 04.22.2020: No abdominal pain or chest pain. Anxiety has improved and she feels overall improved. Tolerating diet this morning. No complications related to plasma therapy or Remdesivir. 04.21.2020: No abdominal pain or chest pain. She does endorse claustrophobia when lying prone at times. She also feels lonely,scared and anxious. 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 Her chest x-ray is slightly worse on yesterday's examination. No reactions to CCP or Remdesivir. No neurological dysfunction. She occasionally has soft- liquid bowel movements with excessive coughing. Reason for ICU Addmission:: Acute hypoxic respiratory failure, SARs-CoViD19 positive - Medications: Vasopressors:: None Sedation:: Anti-anxiety agents Physical Exam Vital Signs: Temp Pulse Resp BP Pulse Ox 98.1 F 73 41 H 105/64 96 07/30/20 12:00 04/23/20 14:00 04/23/20 14:00 04/23/20 14:00 04/23/20 14:00 Intake & Output 04/22/20 04/23/20 04/24/20 06:59 06:59 06:59 Intake Total 370 240 240 Output Total 29749 750 300 Balance -56598 -510 -60 Weight 118.7 kg Weight/Height Weight 118.7 kg Height 5 ft 7 in General appearance: PRESENT: no acute distress, cooperative, obese Exam: Nontoxic nonintubated 39-year-old female no acute distress. She appears much improved today Head exam: PRESENT: atraumatic, normocephalic Eye exam: PRESENT: conjunctiva pink, EOMI, PERRLA. ABSENT: conjunctival injection, nystagmus, scleral icterus Mouth exam: PRESENT: neck supple Teeth exam: ABSENT: edentulous, poor dentation Neck exam: PRESENT: full ROM. ABSENT: JVD, lymphadenopathy, tenderness, thyromegaly Respiratory exam: PRESENT: unlabored, other - Lung sounds not auscultated secondary to the confines of PPE and poor auditory capability of disposable stethoscope. ABSENT: accessory muscle use, prolonged expiratory phas, retraction, tachypnea Cardiovascular exam: PRESENT: RRR, other - Heart sounds not auscultated secondary to the confines of PPE and poor auditory capability of disposable stethoscope. ABSENT: tachycardia Pulses: PRESENT: +1 pedal pulses bilateral Vascular exam: PRESENT: normal capillary refill. ABSENT: pallor GI/Abdominal exam: PRESENT: soft, other - Gastric sounds not auscultated se condary to the confines of PPE and poor auditory capability of disposable stethoscope. ABSENT: ascites, firm, guarding, mass, normal bowel sounds, organolmegaly, rigid, tenderness Rectal exam: PRESENT: deferred Gentrourinary exam: ABSENT: indwelling catheter Extremities exam: ABSENT: pedal edema, tenderness Musculoskeletal exam: PRESENT: normal inspection. ABSENT: deformity, dislocation Neurological exam: PRESENT: alert, awake, oriented to person, oriented to place, oriented to time, oriented to situation, CN II-XII grossly intact. ABSENT: motor sensory deficit, aphasic Psychiatric exam: PRESENT: appropriate affect, normal mood Focused psych exam: ABSENT: psychomotor agitation, restlessness Skin exam: PRESENT: dry, intact, warm. ABSENT: cyanosis, pallor, petechiae, rash Laboratory/Radiographs Laboratory Results: 04/23/20 06:28 04/23/20 06:28 04/23/20 04/23/20 06:28 06:28 WBC 9.3 RBC 4.56 Hgb 12.1 Hct 35.6 L MCV 78 L MCH 26.5 L MCHC 34.0 RDW 15.2 H Plt Count 414 Seg Neutrophils % Not Reportable Sodium 139.2 Potassium 4.1 Chloride 108 H Carbon Dioxide 26 Anion Gap 5 BUN 12 Creatinine 0.52 Est GFR ( Amer) > 60 Glucose 124 H Calcium 8.8 Phosphorus 4.1 Magnesium 2.0 Ferritin 106.00 Total Bilirubin 0.4 AST 61 H Alkaline Phosphatase 53 C-Reactive Protein 17.8 H Total Protein 6.5 Albumin 3.3 L 04/21/20 03:50 Creatine Kinase 99 Impressions: Chest X-Ray 04/23/20 06:00 IMPRESSION: Improving pneumonia. All labs, radiographs, diagnostic studies and EKGs were personally reviewed: Yes In addition, reports of radiographic and diagnostic studies were read: Yes Assessment and Plan - Diagnosis (1) Acute respiratory failure with hypoxemia Is this a current diagnosis for this admission?: Yes (2) COVID-19 virus infection Is this a current diagnosis for this admission?: Yes (3) Pneumonia due to COVID-19 virus Is this a current diagnosis for this admission?: Yes (4) Obesity (BMI 35.0-39.9 without comorbidity) Is this a current diagnosis for this admission?: Yes (5) Generalized anxiety disorder Is this a current diagnosis for this admission?: Yes Plan Summary: : Patient has had a continued and significant improvement in her respiratory function. Her chest x-ray has improved significantly as well. She is weaning from high flow nasal cannula to standard nasal cannula oxygen. She is somewhat dyspneic with activity and we have counseled her that this may be an ongoing issue for quite some time based on post ICU studies. The literature is right with multiple studies involving presence of symptoms for prolonged period of time. Patient received convalescent plasma on admission to the ICU. She has had no untoward side effects or sequelae related to this. She also is on ranges of year and this is day 3. She was enrolled in a study from [facility] for the use of convalescent COVID plasma She will need follow-up and her patient code is: [id number]; [facility] [id number]. Follow-up items include following d-dimer, ferritin and CRP. Current recommendations by the [facility] and other notable academic centers discussed the use of therapeutic Lovenox with reducing dose when patient has improved. Under their algorithmic approach we have reduced her therapeutic dose of 120 mg every 12 to the 0.5 make per cake dose resulting in 60 mg/kg every 12. Some anecdotal evidence suggests prolonging anticoagulation for up to 90 days. Remarkably, patient is suitable for transition to care. Therapy is ordered She is required no antibiotics. Would limit the use of chest x-ray at this point given her improvement. If she progresses this may be useful 04.22.2020: Patient has improved dramatically in the last 24 hours. Oxygen therapy is weaning and she is now only on high flow nasal cannula with reduction in FiO2. Will continue to prone especially at night in hopes to able to be able to wean the high flow nasal cannula. She is feeling less anorexic. Continue steroid therapy and Remdesivir. Continue patient in negative airflow room Consideration for transfer in the next 12 to 24 hours if hypoxia approved and reduction in oxygen is able to be accomplished. Continue supportive care CRP continues to improve however ferritin remains elevated but not significant. D-dimer has improved as well. We will continue on Lovenox given its efficacy in COVID. If parameters remain improved tomorrow may be able to transition to prophylactic Lovenox treatment 04.21.2020: Patient continues to remain stable with current treatment. We have spent a significant amount of time with her today to encourage her to remain prone. We will continue current therapy. She is currently registered under the [facility] CCP therapy and also is a ca ndidate for continued Remdesivir. She will need to be maintained in the ICU so that appropriate pronating can be done in evaluation for worsening trajectory. She has had day 4-5 since her diagnosis but had symptoms prior to that. Hopeful that we have reached a plateau phase and will continue to improve. She still is noticeably dyspneic and oxygen saturations do diminish with activity. Have discussed the prognosis of this disease and the persistence of hypoxia and cough for some time. Have introduced sublingual Xanax and will give her 1 dose of Ativan in hopes to allay her anxiety. I have also discussed the possibility of using her phone and watching movies, face timing with family and other activities while lying prone to help with anxiety and claustrophobia. We discussed the imperative nature of pronating and its overall improvement and she is willing to continue to attempt to do so. Continue to monitor for any complications related to treatment. The Decadron and supplemental therapy as noted. Critical Time Critical Time (minutes): 0 - 02443 Level of Care: IMCU Anticipated discharge: Home with Homehealth Anticipated DC Timeframe: within 72 hours -: 1. The care of a critical patient is a dynamic process. This note is a patient accounting representative synopsis but static in nature. The timeframe for treatments given in order is not necessarily the actual time these treatments may have been done. 2. This patient requires critical care secondary to ongoing requirements for therapy not offered or safe outside the critical care environment. Transfer to a lower level of care will result in altered life or limb morbidity and mortality. 3. Multidisciplinary rounds completed. 4. ABCDE bundle addressed.
[2020-04-23] MEDS: THIAMINE HCL 100 MG TABLET PO SCH (17:28)
[2020-04-23] MEDS: REMDESIVIR (EUA) 100 MG in NORMAL SALINE 250 ML IV SCH (17:41)
[2020-04-23] MEDS: MELATONIN 5 MG TABLET PO SCH (21:36)
[2020-04-23] MEDS: ATORVASTATIN CALCIUM 80 MG TABLET PO SCH (21:36)
[2020-04-23] MEDS ORDERED: ENOXAPARIN SODIUM INJ 60 MG/0.6 ML DISP.SYRIN SUBCUT SCH (22:00)
[2020-04-23] MEDS ORDERED: ENOXAPARIN SODIUM INJ 120 MG/0.8 ML DISP.SYRIN SUBCUT SCH (22:00)
[2020-04-24 04:52] LABS: HEMATOCRIT 36.9 % (36.0-47.0); HEMOGLOBIN 12.3 g/dL (12.0-15.5); MEAN CORPUSCULAR HGB CONC 33.4 g/dL (32.0-36.0); MEAN CORPUSCULAR VOLUME 78 fl (80-97); PLATELET COUNT 423 10^3/uL (150-450); RED BLOOD COUNT 4.73 10^6/uL (3.72-5.28); RED CELL DISTRIBUTION WIDTH 15.4 % (11.5-14.0); WHITE BLOOD COUNT 11.7 10^3/uL (4.0-10.5)
[2020-04-24 05:00] LABS: ALBUMIN 3.3 g/dL (3.5-5.0); ALKALINE PHOSPHATASE 48 U/L (38-126); ANION GAP 5 (5-19); ASPARTATE AMINO TRANSFERASE 49 U/L (14-36); BILIRUBIN,TOTAL 0.4 mg/dL (0.2-1.3); BLOOD UREA NITROGEN 11 mg/dL (7-20); C-REACTIVE PROTEIN 7.8 mg/L (<10.0); CALCIUM 8.9 mg/dL (8.4-10.2); CARBON DIOXIDE 24 mmol/L (22-30); CHLORIDE 109 mmol/L (98-107); GLUCOSE 130 mg/dL (75-110); POTASSIUM 4.3 mmol/L (3.6-5.0); TOTAL PROTEIN 6.5 g/dL (6.3-8.2)
[2020-04-24] MEDS: ASCORBIC ACID 500 MG TABLET PO SCH ×3 (05:48→17:41)
[2020-04-24 05:49] LABS: ABSOLUTE LYMPHOCYTES# (MANUAL) 2.3 10^3/uL (0.5-4.7); ABSOLUTE MONOCYTES # (MANUAL) 0.7 10^3/uL (0.1-1.4); BAND NEUTROPHILS % (MANUAL) 2 % (3-5); BASOPHILS % (MANUAL) 1 % (0-2); EOSINOPHILS % (MANUAL) 0 % (0-6); LYMPHOCYTES % (MANUAL) 18 % (13-45); MONOCYTES % (MANUAL) 6 % (3-13); MYELOCYTES % (MANUAL) 2 % (0); SEGMENTED NEUTROPHILS % (MAN) 69 % (42-78); TOTAL CELLS COUNTED 100
[2020-04-24 05:50] LABS: ANISOCYTOSIS SLIGHT; PLATELET COMMENT ADEQUATE
[2020-04-24 05:52] LABS: OVALOCYTES SLIGHT; TEAR DROP CELLS SLIGHT; TOXIC VACUOLATION PRESENT
[2020-04-24] MEDS: CHOLECALCIFEROL (D3) 1,000 UNIT (25 MCG) TABLET PO SCH (11:22)
[2020-04-24] MEDS: FAMOTIDINE 20 MG TABLET PO SCH ×2 (11:23→21:19)
[2020-04-24] MEDS: THIAMINE HCL 100 MG TABLET PO SCH ×2 (11:23→17:41)
[2020-04-24] MEDS: ZINC SULFATE 220 MG CAPSULE PO SCH (11:24)
[2020-04-24] MEDS: VENLAFAXINE HCL 37.5 MG CAP.SR.24H PO SCH (11:33)
[2020-04-24] MEDS: ENOXAPARIN SODIUM INJ 60 MG/0.6 ML DISP.SYRIN SUBCUT SCH ×2 (11:33→21:21)
[2020-04-24] MEDS: DEXAMETHASONE 4 MG TABLET PO SCH (11:38)
--- NOTE | 2020-04-24 14:33 | PDOC CRITICAL CARE PROG REPORT ---
General Date:: 04/24/20 ICU Day:: 5 Hospital Day:: 6 Resuscitation Status: Full Code Medical Power of Customs House Broker: Events in the past 12 to 24 Hours:: 04.24.2020: Patient remains domiciled in the ICU secondary to bed capacity on the monitored floors. She was able to walk somewhat with out oxygen but became slightly dyspneic. This improved with nasal cannula. She is tolerating food and is quite hungry juxtaposed to initial admission. 04.23.2020: Patient continues to improve nasal cannula without hypoxia. She does still have significant dyspnea with exertion severe and certainly improved She is tolerating a diet and has no further anorexia. She is able to taste. 04.22.2020: Patient was able to prone last evening. She is improved and is now sitting upright in chair. Facemask oxygen in combination with high flow has now been discontinued and she is now on reduced high flow nasal cannula protocol. She still has slight shortness of breath with dyspnea on conversation but improved from yesterday. 04.21.2020: Patient was proned yesterday on high flow nasal cannula with dramatic improvement in SaO2 and respiratory distress. She intermittently becomes claustrophobic and anxious and will not remain in a prone state for prolonged period of time. Hemodynamically she has not been labile. She received convalescent COVID plasma last evening as well as Remdesivir. No reactions to either treatments occurred. Patient has required anti-anxiety agents to assist with treatment. Review of systems relevant to events:: 04.24.2020: Patient has not required any prone positioning. She is tolerating diet well. Lovenox has been decreased to 0.5 mix per kick based on her reduction a d-dimer. Inflammatory markers continue to improve. 04.23.2020: Did not require prone positioning and remained upright in a chair without hypoxia. Chest x-ray improved. Inflammatory markers improved as well as d-dimer. No bleeding on treatment dose Lovenox. 04.22.2020: No abdominal pain or chest pain. Anxiety has improved and she feels overall improved. Tolerating diet this morning. No complications related to p lasma therapy or Remdesivir. 04.21.2020: No abdominal pain or chest pain. She does endorse claustrophobia when lying prone at times. She also feels lonely,scared and anxious. 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 Her chest x-ray is slightly worse on yesterday's examination. No reactions to CCP or Remdesivir. No neurological dysfunction. She occasionally has soft- liquid bowel movements with excessive coughing. Reason for ICU Addmission:: Acute hypoxic respiratory failure, SARs-CoViD19 positive Physical Exam Vital Signs: Temp Pulse Resp BP Pulse Ox 98.1 F 33 L 27 H 110/62 93 04/23/20 12:00 04/24/20 08:00 04/24/20 12:00 04/24/20 11:19 04/24/20 12:00 Intake & Output 04/23/20 04/24/20 04/25/20 06:59 06:59 06:59 Intake Total 490 240 600 Output Total 750 1500 Balance -260 -1260 600 Weight/Height Weight 118.7 kg Height 5 ft 7 in General appearance: PRESENT: no acute distress, obese Exam: Not intubated, nontoxic pleasant 39-year-old female no acute distress she is awake alert and oriented x4 Eye exam: PRESENT: EOMI, PERRLA. ABSENT: conjunctival injection, nystagmus, scleral icterus Mouth exam: PRESENT: neck supple - She really Neck exam: ABSENT: carotid bruit, JVD, lymphadenopathy, tenderness, thyromegaly, tracheal deviation Respiratory exam: PRESENT: rales, rhonchi, unlabored, other - Lung sounds not auscultated secondary to the confines of PPE and poor auditory capability of disposable stethoscope. ABSENT: accessory muscle use, tachypnea, wheezes Cardiovascular exam: PRESENT: RRR, systolic murmur, other - Heart sounds not auscultated secondary to the confines of PPE and poor auditory capability of disposable stethoscope. ABSENT: bradycardia, tachycardia Pulses: PRESENT: +1 pedal pulses bilateral Vascular exam: PRESENT: normal capillary refill. ABSENT: pallor GI/Abdominal exam: PRESENT: soft, other - Gastric sounds not auscultated secondary to the confines of PPE and poor auditory capability of disposable stethoscope. ABSENT: ascites, distended, guarding, mass, organolmegaly, rebound, tenderness Rectal exam: PRESENT: deferred Gentrourinary exam: ABSENT: indwelling catheter Extremities exam: PRESENT: pedal edema Musculoskeletal exam: PRESENT: ambulatory, normal inspection. ABSENT: deformity, dislocation Neurological exam: PRESENT: alert, awake, oriented to person, oriented to place, oriented to time, oriented to situation, CN II-XII grossly intact. ABSENT: motor sensory deficit Psychiatric exam: PRESENT: appropriate affect, normal mood. ABSENT: agitated, anxious Focused psych exam: ABSENT: pressured speech, psychomotor agitation, restlessness Skin exam: PRESENT: dry, intact, warm. ABSENT: cyanosis, jaundice, rash Laboratory/Radiographs Laboratory Results: 04/24/20 04:16 04/24/20 04:16 04/24/20 04/24/20 04:16 04:16 WBC 11.7 H RBC 4.73 Hgb 12.3 Hct 36.9 MCV 78 L MCH 26.0 L MCHC 33.4 RDW 15.4 H Plt Count 423 Seg Neutrophils % Not Reportable Sodium 137.5 Potassium 4.3 Chloride 109 H Carbon Dioxide 24 Anion Gap 5 BUN 11 Creatinine 0.51 L Est GFR ( Amer) > 60 Glucose 130 H Calcium 8.9 Phosphorus 4.0 Magnesium 2.0 Ferritin 76.20 Total Bilirubin 0.4 AST 49 H Alkaline Phosphatase 48 C-Reactive Protein 7.8 Total Protein 6.5 Albumin 3.3 L 04/18/20 23:21 Blood Blood Culture - Final NO GROWTH IN 5 DAYS 04/18/20 22:20 Blood Blood Culture - Final NO GROWTH IN 5 DAYS 04/21/20 03:50 Creatine Kinase 99 Impressions: Chest X-Ray 04/23/20 06:00 IMPRESSION: Improving pneumonia. All labs, radiographs, diagnostic studies and EKGs were personally reviewed: Yes In addition, reports of radiographic and diagnostic studies were read: Yes Assessment and Plan - Diagnosis (1) Acute respiratory failure with hypoxemia Is this a current diagnosis for this admission?: Yes (2) COVID-19 virus infection Is this a current diagnosis for this admission?: Yes (3) Pneumonia due to COVID-19 virus Is this a current diagnosis for this admission?: Yes (4) Obesity (BMI 35.0-39.9 without comorbidity) Is this a current diagnosis for this admission?: Yes (5) Generalized anxiety disorder Is this a current diagnosis for this admission?: Yes Plan Summary: 04.24.2020: Patient has had impressive improvement in her inflammatory markers as well as d- dimer has significantly been reduced. She is a recipient of convalescent COVID plasma and today is her last day of room to severe. Given her reduction in d-dimer she has been placed on intermediate dosing of Lovenox at 0.5 mg/kg Her Decadron is being reduced to 3 mg twice daily. This should be weaned slowly. She is able to walk more and attempted to do so without oxygen. That being said she had some degree of shortness of breath that responded very quickly to oxygen therapy. Patient has responded well to therapy and has been transition to stepdown care however due to bed capacity has remained in the ICU. We will continue supportive care. Neurologically intact No symptoms or signs suggestive of myocardial dysfunction 7.3030: Patient has had a continued and significant improvement in her respiratory function. Her chest x-ray has improved significantly as well. She is weaning from high flow nasal cannula to standard nasal cannula oxygen. She is somewhat dyspneic with activity and we have counseled her that this may be an ongoing issue for quite some time based on post ICU studies. The literature is right with multiple studies involving presence of symptoms for prolonged period of time. Patient received convalescent plasma on admission to the ICU. She has had no untoward side effects or sequelae related to this. She also is on ranges of year and this is day 3. She was enrolled in a study from [facility] for the use of convalescent COVID plasma She will need follow-up and her patient code is: [id number]; [facility] [id number]. Follow-up items include following d-dimer, ferritin and CRP. Current recommendations by the [facility] and other notable academic centers discussed the use of therapeutic Lovenox with reducing dose when patient has improved. Under their algorithmic approach we have reduced her therapeutic dose of 120 mg every 12 to the 0.5 make per cake dose resulting in 60 mg/kg every 12. Some anecdotal evidence suggests prolonging anticoagulation for up to 90 days. Remarkably, patient is suitable for transition to care. Therapy is ordered She is required no antibiotics. Would limit the use of chest x-ray at this point given her improvement. If she progresses this may be useful 7: Patient has improved dramatically in the last 24 hours. Oxygen therapy is weaning and she is now only on high flow nasal cannula with reduction in FiO2. Will continue to prone especially at night in hopes to able to be able to wean the high flow nasal cannula. She is feeling less anorexic. Continue steroid therapy and Remdesivir. Continue patient in negative airflow room Consideration for transfer in the next 12 to 24 hours if hypoxia approved and r eduction in oxygen is able to be accomplished. Continue supportive care CRP continues to improve however ferritin remains elevated but not significant. D-dimer has improved as well. We will continue on Lovenox given its efficacy in COVID. If parameters remain improved tomorrow may be able to transition to prophylactic Lovenox treatment 04.21.2020: Patient continues to remain stable with current treatment. We have spent a significant amount of time with her today to encourage her to remain prone. We will continue current therapy. She is currently registered under the [facility] CCP therapy and also is a candidate for continued Remdesivir. She will need to be maintained in the ICU so that appropriate pronating can be done in evaluation for worsening trajectory. She has had day 4-5 since her diagnosis but had symptoms prior to that. Hopeful that we have reached a plateau phase and will continue to improve. She still is noticeably dyspneic and oxygen saturations do diminish with activity. Have discussed the prognosis of this disease and the persistence of hypoxia and cough for some time. Have introduced sublingual Xanax and will give her 1 dose of Ativan in hopes to allay her anxiety. I have also discussed the possibility of using her phone and watching movies, face timing with family and other activities while lying prone to help with anxiety and claustrophobia. We discussed the imperative nature of pronating and its overall improvement and she is willing to continue to attempt to do so. Continue to monitor for any complications related to treatment. The Decadron and supplemental therapy as noted. Critical Time Critical Time (minutes): 0 - [id number] Level of Care: TELE Anticipated discharge: Home with Homehealth Anticipated DC Timeframe: within 48 hours -: 1. The care of a critical patient is a dynamic process. This note is a small business sales representative synopsis but static in nature. The timeframe for treatments given in order is not necessarily the actual time these treatments may have been done. 2. This patient requires critical care secondary to ongoing requirements for therapy not offered or safe outside the critical care environment. Transfer to a lower level of care will result in altered life or limb morbidity and mortality. 3. Multidisciplinary rounds completed. 4. ABCDE bundle addressed.
[2020-04-24] MEDS: REMDESIVIR (EUA) 100 MG in NORMAL SALINE 250 ML IV SCH (17:42)
--- NOTE | 2020-04-24 19:27 | Progress Note ---
Provider Note Provider Note: Patient is downgraded from ICU today. While in the ICU, patient tested positive for COVID-19; treated with prone posi tioning, high flow nasal cannula, remdisivir, and convalescent serum. Approximately 48 hours after receiving the convalescent serum, the patient began to rapidly improved. She is now maintaining oxygen saturations on nasal cannula at 5 L/min. She remains dyspneic at rest, but speaking full sentences without increased work of breathing. She does tire easily and has persistent fatigue. Otherwise, she states that she is feeling much better. Patient is downgraded to the medical floor. She continues on vitamin C, vitamin D, thiamine, zinc, and melatonin supplementation. Remains on atorvastatin nightly. Receiving partial dose Lovenox; 0.5 mg/kg twice daily. Plan is to continue weaning dexamethasone; currently on 3 mg p.o. twice daily. Continue to encourage pulmonary toilet with incentive spirometer, flutter valve, and ambulation. Vital signs, labs, imaging, progress notes, and orders reviewed. Agree with plan of care as established by the previous provider.
[2020-04-24] MEDS: ATORVASTATIN CALCIUM 80 MG TABLET PO SCH (21:18)
[2020-04-24] MEDS: MELATONIN 5 MG TABLET PO SCH (21:20)
[2020-04-24] MEDS: DEXAMETHASONE 0.5 MG TABLET PO SCH (21:35)
[2020-04-24] MEDS ORDERED: DEXAMETHASONE 4 MG TABLET PO SCH (22:00)
[2020-04-25] MEDS: ASCORBIC ACID 500 MG TABLET PO SCH ×5 (00:26→23:52)
[2020-04-25 06:40] LABS: HEMATOCRIT 37.8 % (36.0-47.0); HEMOGLOBIN 12.4 g/dL (12.0-15.5); MEAN CORPUSCULAR HEMOGLOBIN 25.8 pg (27.0-33.4); MEAN CORPUSCULAR HGB CONC 32.9 g/dL (32.0-36.0); MEAN CORPUSCULAR VOLUME 79 fl (80-97); PLATELET COUNT 407 10^3/uL (150-450); RED BLOOD COUNT 4.81 10^6/uL (3.72-5.28); RED CELL DISTRIBUTION WIDTH 15.4 % (11.5-14.0); WHITE BLOOD COUNT 12.1 10^3/uL (4.0-10.5)
[2020-04-25 06:53] LABS: ANION GAP 7 (5-19); BLOOD UREA NITROGEN 12 mg/dL (7-20); CALCIUM 8.8 mg/dL (8.4-10.2); CARBON DIOXIDE 24 mmol/L (22-30); CHLORIDE 107 mmol/L (98-107); GLUCOSE 110 mg/dL (75-110); PHOSPHORUS 4.6 mg/dL (2.5-4.5); POTASSIUM 4.6 mmol/L (3.6-5.0)
[2020-04-25 07:16] LABS: ABSOLUTE LYMPHOCYTES# (MANUAL) 2.7 10^3/uL (0.5-4.7); ABSOLUTE MONOCYTES # (MANUAL) 1.5 10^3/uL (0.1-1.4); BAND NEUTROPHILS % (MANUAL) 9 % (3-5); BASOPHILS % (MANUAL) 0 % (0-2); EOSINOPHILS % (MANUAL) 0 % (0-6); LYMPHOCYTES % (MANUAL) 22 % (13-45); METAMYELOCYTES % (MANUAL) 1 % (0-1); MONOCYTES % (MANUAL) 12 % (3-13); SEGMENTED NEUTROPHILS % (MAN) 56 % (42-78); TOTAL CELLS COUNTED 100
[2020-04-25 07:17] LABS: ANISOCYTOSIS 1+; PLATELET COMMENT ADEQUATE
[2020-04-25] MEDS: VENLAFAXINE HCL 37.5 MG CAP.SR.24H PO SCH (09:19)
[2020-04-25] MEDS: THIAMINE HCL 100 MG TABLET PO SCH ×2 (09:19→17:00)
[2020-04-25] MEDS: FAMOTIDINE 20 MG TABLET PO SCH ×2 (09:19→22:16)
[2020-04-25] MEDS: ZINC SULFATE 220 MG CAPSULE PO SCH (09:19)
[2020-04-25] MEDS: CHOLECALCIFEROL (D3) 1,000 UNIT (25 MCG) TABLET PO SCH (09:19)
[2020-04-25] MEDS: DEXAMETHASONE 0.5 MG TABLET PO SCH (09:20)
[2020-04-25] MEDS: ENOXAPARIN SODIUM INJ 60 MG/0.6 ML DISP.SYRIN SUBCUT SCH ×2 (09:20→22:16)
--- NOTE | 2020-04-25 14:56 | PDOC PROGRESS REPORT ---
Subjective Progress Note for:: 04/25/20 Subjective:: The patient is a 39-year-old female with past medical history significant only for depression/anxiety and obesity who was admitted 04/19/2020 with COVID-19 pneumonia. Due to worsening respiratory status, she was upgraded to the ICU 04/20/2020. She qualified for COVID convalescent plasma, as well as, Remdisivir. Fortunately, she improved rapidly following receipt of convalescent serum. Respiratory status has gradually improved; she has been downgraded back to the edical floor. Patient was seen on morning rounds. She is found sitting up to the edge of the bed, comfortably, on room air. She has been ambulating in her room; to and from restroom, without increased work of breathing, tachycardia, or hypoxia. She reports an occasional nonproductive cough after activity. She also reports continued loose stools, although, improving. Overall, she is feeling significantly better and is looking forward to her approaching discharge. She has no questions or concerns at this time. No concerns per nursing. Reason For Visit: COMMUNITY-ACQUIRED BILATERAL LOWER LOBE PNEUMONIA Physical Exam Vital Signs: Temp Pulse Resp BP Pulse Ox 97.9 F 72 20 109/72 96 04/25/20 11:25 04/25/20 14:00 04/25/20 11:25 04/25/20 11:25 04/25/20 11:25 Intake & Output 04/24/20 04/25/20 04/26/20 06:59 06:59 06:59 Intake Total 490 850 Output Total 1500 Balance -1010 850 Weight 115 kg General appearance: PRESENT: no acute distress, cooperative, obese, well- developed, well-nourished Head exam: PRESENT: atraumatic, normocephalic Eye exam: PRESENT: conjunctiva pink, EOMI, PERRLA. ABSENT: scleral icterus Ear exam: PRESENT: normal external ear exam Mouth exam: PRESENT: moist, tongue midline Neck exam: ABSENT: carotid bruit, JVD, lymphadenopathy, thyromegaly Respiratory exam: PRESENT: clear to auscultation rick, symmetrical, unlabored. ABSENT: rales, rhonchi, wheezes Cardiovascular exam: PRESENT: RRR. ABSENT: diastolic murmur, rubs, systolic murmur Pulses: PRESENT: normal dorsalis pedis pul Vascular exam: PRESENT: normal capillary refill GI/Abdominal exam: PRESENT: normal bowel sounds, soft. ABSENT: distended, guarding, mass, organolmegaly, rebound, tenderness Rectal exam: PRESENT: deferred Extremities exam: PRESENT: full ROM. ABSENT: calf tenderness, clubbing, pedal edema Neurological exam: PRESENT: alert, awake, oriented to person, oriented to place, oriented to time, oriented to situation, CN II-XII grossly intact. ABSENT: motor sensory deficit Psychiatric exam: PRESENT: appropriate affect, normal mood. ABSENT: homicidal ideation, suicidal ideation Skin exam: PRESENT: dry, intact, warm. ABSENT: cyanosis, rash Results Laboratory Results: 04/25/20 05:25 04/25/20 05:25 04/25/20 04/25/20 05:25 05:25 WBC 12.1 H RBC 4.81 Hgb 12.4 Hct 37.8 MCV 79 L MCH 25.8 L MCHC 32.9 RDW 15.4 H Plt Count 407 Seg Neutrophils % Not Reportable Sodium 137.6 Potassium 4.6 Chloride 107 Carbon Dioxide 24 Anion Gap 7 BUN 12 Creatinine 0.53 Est GFR ( Amer) > 60 Glucose 110 Calcium 8.8 Phosphorus 4.6 H Magnesium 2.0 04/21/20 03:50 Creatine Kinase 99 Impressions: Chest X-Ray 04/23/20 06:00 IMPRESSION: Improving pneumonia. Assessment and Plan - Diagnosis (1) Pneumonia due to COVID-19 virus Is this a current diagnosis for this admission?: Yes Plan: Resolved. COVID-19 serology positive. Patient was initially placed on azithromycin and ceftriaxone for treatment of community-acquired pneumonia. Ceftriaxone discontinued following confirmation of COVID-19. Received full course of Remdesivir Received convalescent plasma; [facility] She continues on p.o. Decadron. Continue Lovenox, atorvastatin. Continue vitamin C, vitamin D, thiamine, melatonin and zinc. (2) COVID-19 virus infection Is this a current diagnosis for this admission?: Yes Plan: As above (3) Acute respiratory failure with hypoxemia Is this a current diagnosis for this admission?: Yes Plan: Significantly improved; now maintaining oxygen saturations on room air. Management as above. (4) Generalized anxiety disorder Is this a current diagnosis for this admission?: Yes Plan: Well-controlled. Continue home dose Effexor. (5) Obesity (BMI 35.0-39.9 without comorbidity) Is this a current diagnosis for this admission?: Yes Plan: BMI 39.7 Diet and lifestyle modification recommended. - Time Time Spent with patient: 25-34 minutes Medications reviewed and adjusted accordingly: Yes Anticipated Discharge Disposition: Home, Self Care Anticipated Discharge Timeframe: within 24 hours - if maintains SpO2 on RA
[2020-04-25 19:29] LABS: APPEARANCE,URINE SLIGHTLY-CLOUDY; BILIRUBIN,URINE NEGATIVE (NEGATIVE); CALCIUM OXALATE CRYSTALS,URINE MANY /HPF; COLOR,URINE YELLOW; GLUCOSE, URINE NEGATIVE (NEGATIVE); KETONES,URINE NEGATIVE (NEGATIVE); LEUKOCYTE ESTERASE,URINE NEGATIVE (NEGATIVE); NITRITE,URINE NEGATIVE (NEGATIVE); PROTEIN,URINE NEGATIVE (NEGATIVE); URINE SPECIFIC GRAVITY 1.017; UROBILINOGEN,URINE NEGATIVE mg/dL (<2.0)
[2020-04-25] MEDS ORDERED: DEXAMETHASONE 0.5 MG TABLET PO SCH (22:00)
[2020-04-25] MEDS: DEXAMETHASONE 4 MG TABLET PO SCH (22:15)
[2020-04-25] MEDS: MELATONIN 5 MG TABLET PO SCH (22:16)
[2020-04-25] MEDS: ATORVASTATIN CALCIUM 80 MG TABLET PO SCH (22:16)
[2020-04-26] MEDS: ASCORBIC ACID 500 MG TABLET PO SCH (06:52)
[2020-04-26 08:34] VITALS: BP 109/63
[2020-04-26] MEDS: CHOLECALCIFEROL (D3) 1,000 UNIT (25 MCG) TABLET PO SCH (09:27)
[2020-04-26] MEDS: DEXAMETHASONE 4 MG TABLET PO SCH (09:27)
[2020-04-26] MEDS: FAMOTIDINE 20 MG TABLET PO SCH (09:27)
[2020-04-26] MEDS: THIAMINE HCL 100 MG TABLET PO SCH (09:28)
[2020-04-26] MEDS: ZINC SULFATE 220 MG CAPSULE PO SCH (09:28)
[2020-04-26] MEDS: VENLAFAXINE HCL 37.5 MG CAP.SR.24H PO SCH (09:28)
--- NOTE | 2020-04-29 13:25 | PDOC DISCHARGE SUMMARY ---
Impression - Admit/DC Date/PCP Admission Date/Primary Care Provider: 04/19/20 00:50 JOSE ERICKSON MD Discharge Date: 04/26/20 - Discharge Diagnosis (1) Pneumonia due to COVID-19 virus Is this a current diagnosis for this admission?: Yes (2) COVID-19 virus infection Is this a current diagnosis for this admission?: Yes (3) Acute respiratory failure with hypoxemia Is this a current diagnosis for this admission?: Yes (4) Generalized anxiety disorder Is this a current diagnosis for this admission?: Yes (5) Obesity (BMI 35.0-39.9 without comorbidity) Is this a current diagnosis for this admission?: Yes - Additional Information Resuscitation Status: Full Code Discharge Diet: Regular Discharge Activity: Activity As Tolerated, Balance Activity w/Rest, Slowly Increase Activity Referrals: JOSE ERICKSON MD [Primary Care Provider] - (Follow up within 1 week.) Prescriptions: Albuterol Sulfate [Albuterol Sulfate Hfa] 1 - 2 puff IH Q4HP PRN #1 hfa.aer.ad PRN Reason: Shortness Of Breath Prednisone [Deltasone 20 mg Tablet] 20 mg PO ASDIR PRN #5 tablet PRN Reason: Home Medications: Multivitamin [Tab-A-Janice (Multiple Vitamin) Tablet] 1 tab PO DAILY 04/19/20 Venlafaxine HCl ER [Effexor Xr 37.5 mg Cap.sr] 37.5 mg PO DAILY 04/19/20 Albuterol Sulfate [Albuterol Sulfate Hfa] 1 - 2 puff IH Q4HP PRN #1 hfa.aer.ad 04/26/20 Prednisone [Deltasone 20 mg Tablet] 20 mg PO ASDIR PRN #5 tablet 04/26/20 History of Present Illiness History of Present Illness: H&P by Dr. De La Cruz: TATUM TOLLIVER is a 39 year old female who presented the emergency room with a one-week history of dyspnea. She admits gradually worsening dyspnea over the last week, becoming severe just prior to coming to the emergency room, accompanied by a nonproductive cough and a fever up to 102.5 F with chills. Her dyspnea has been associated with nausea with retching, malaise, ague and insomnia. Her dyspnea is worsened by activity or exertion and improved with rest. She denies other associated or accompanying signs and symptoms. She denies prior similar episodes. She has not identified any additional aggravating or ameliorating factors for her dyspnea. She was seen by Dr. Erickson earlier in the week and was tested for COVID-19 but has not yet received the results. She was seen in the emergency room on 04/17/2020 for the same symptoms but felt improved after she was treated with IV fluid, IV steroids and supplemental oxygen. Her symptoms returned on the evening of 04/18/2020 becoming severe and resulting in her return to the emergency room. Her was diagnosed is COVID-19 positive earlier this week. In the emergency room she was found to have an O2 sat of 89% on room air and was treated with supplemental oxygen. Her chest x-ray was noted to have progressive worsening of her bibasilar pneumonia and she was subsequently admitted to the hospital for further evaluation and treatment on the COVID-19 unit as a patient under investigation. Hospital Course Hospital Course: The patient is a 39-year-old female with past medical history significant only for depression/anxiety and obesity who was admitted 04/19/2020 with COVID-19 pneumonia. Due to worsening respiratory status, she was upgraded to the ICU 04/20/2020. She qualified for COVID convalescent plasma, as well as, Remdisivir. Fortunately, she improved rapidly following receipt of convalescent serum. She was supported with high flow nasal cannula and prone positioning; did not require intubation/ventilatory support. Respiratory status has gradually improved and she was downgraded back to the medical floor 04/25/2020. (1) Pneumonia due to COVID-19 virus Resolved. COVID-19 serology positive. Patient was initially placed on azithromycin and ceftriaxone for treatment of community-acquired pneumonia. Ceftriaxone discontinued following confirmation of COVID-19. Received full course of Remdesivir Received convalescent plasma; arranged by Dr. Zamora through the [facility]. She received Decadron; steroids slowly weaned. She is discharged with a prednisone taper. Placed on full dose Lovenox and atorvastatin. Received vitamin C, vitamin D, thiamine, melatonin and zinc supplementation. (2) COVID-19 virus infection As above (3) Acute respiratory failure with hypoxemia Resolved. Management as above. (4) Generalized anxiety disorder Well-controlled. Continue home dose Effexor. (5) Obesity (BMI 35.0-39.9 without comorbidity) BMI 39.7 Diet and lifestyle modification recommended. Physical Exam Vital Signs: Temp Pulse Resp BP Pulse Ox 97.6 F 72 24 H 109/63 93 04/26/20 10:38 04/26/20 10:38 04/26/20 10:38 04/26/20 10:38 04/26/20 10:38 General appearance: PRESENT: no acute distress, cooperative, obese, well- developed, well-nourished Head exam: PRESENT: atraumatic, normocephalic Eye exam: PRESENT: conjunctiva pink, EOMI, PERRLA. ABSENT: scleral icterus Mouth exam: PRESENT: moist, tongue midline Respiratory exam: PRESENT: clear to auscultation rick, symmetrical, unlabored, other - Mild tachypnea and dyspnea with activity, though maintains oxygen saturations and resolves quickly with rest. ABSENT: rales, rhonchi, wheezes Cardiovascular exam: PRESENT: RRR. ABSENT: diastolic murmur, rubs, systolic murmur Pulses: PRESENT: normal dorsalis pedis pul Vascular exam: PRESENT: normal capillary refill GI/Abdominal exam: PRESENT: normal bowel sounds, soft. ABSENT: distended, guarding, mass, organolmegaly, rebound, tenderness Rectal exam: PRESENT: deferred Extremities exam: PRESENT: full ROM. ABSENT: calf tenderness, clubbing, pedal edema Musculoskeletal exam: PRESENT: ambulatory Neurological exam: PRESENT: alert, awake, oriented to person, oriented to place, oriented to time, oriented to situation, CN II-XII grossly intact. ABSENT: motor sensory deficit Psychiatric exam: PRESENT: appropriate affect, normal mood. ABSENT: homicidal ideation, suicidal ideation Skin exam: PRESENT: dry, intact, warm. ABSENT: cyanosis, rash Results Laboratory Results: WBC 12.1 10^3/uL (4.0-10.5) H 04/25/20 05:25 RBC 4.81 10^6/uL (3.72-5.28) 04/25/20 05:25 Hgb 12.4 g/dL (12.0-15.5) 04/25/20 05:25 Hct 37.8 % (36.0-47.0) 04/25/20 05:25 MCV 79 fl (80-97) L 04/25/20 05:25 MCH 25.8 pg (27.0-33.4) L 04/25/20 05:25 MCHC 32.9 g/dL (32.0-36.0) 04/25/20 05:25 RDW 15.4 % (11.5-14.0) H 04/25/20 05:25 Plt Count 407 10^3/uL (150-450) 04/25/20 05:25 Lymph % (Auto) Not Reportable 04/25/20 05:25 [place] % (Auto) Not Reportable 04/25/20 05:25 Eos % (Auto) Not Reportable 04/25/20 05:25 Baso % (Auto) Not Reportable 04/25/20 05:25 Absolute Neuts (auto) Not Reportable 04/25/20 05:25 Absolute Lymphs (auto) Not Reportable 04/25/20 05:25 Absolute Monos (auto) Not Reportable 04/25/20 05:25 Absolute Eos (auto) Not Reportable 04/25/20 05:25 Absolute Basos (auto) Not Reportable 04/25/20 05:25 Total Counted 100 04/25/20 05:25 Seg Neutrophils % Not Reportable 04/25/20 05:25 Seg Neuts % (Manual) 56 % (42-78) 04/25/20 05:25 Band Neutrophils % 9 % (3-5) H 04/25/20 05:25 Lymphocytes % (Manual) 22 % (13-45) 04/25/20 05:25 Atypical Lymphs % 2 % (0) 04/24/20 04:16 Monocytes % (Manual) 12 % (3-13) 04/25/20 05:25 Eosinophils % (Manual) 0 % (0-6) 04/25/20 05:25 Basophils % (Manual) 0 % (0-2) 04/25/20 05:25 Metamyelocytes % 1 % (0-1) 04/25/20 05:25 Myelocytes % 2 % (0) H 04/24/20 04:16 Promyelocytes % 2 % (0) H 04/23/20 06:28 Abs Neuts (Manual) 8.0 10^3/uL (1.7-8.2) 04/25/20 05:25 Abs Lymphs (Manual) 2.7 10^3/uL (0.5-4.7) 04/25/20 05:25 Abs Monocytes (Manual) 1.5 10^3/uL (0.1-1.4) H 04/25/20 05:25 Absolute Eos (Manual) 0.0 10^3/uL (0.0-0.6) 04/25/20 05:25 Abs Basophils (Manual) 0.0 10^3/uL (0.0-0.2) 04/25/20 05:25 Toxic Granulation SLIGHT 04/23/20 06:28 Toxic Vacuolation PRESENT 04/24/20 04:16 Platelet Comment ADEQUATE 04/25/20 05:25 Polychromasia SLIGHT 04/23/20 06:28 Anisocytosis 1+ 04/25/20 05:25 Microcytosis SLIGHT 04/25/20 05:25 Tear Drop Cells SLIGHT 04/24/20 04:16 Ovalocytes SLIGHT 04/24/20 04:16 [place] Cells SLIGHT 04/23/20 06:28 PT 14.4 SEC (11.4-15.4) 04/23/20 06:28 INR 1.11 04/23/20 06:28 APTT 36.3 SEC (23.5-35.8) H 04/23/20 06:28 D-Dimer 0.28 ug/mL (0.00-0.50) 04/24/20 04:16 Carbonic Acid 1.14 mmol/L (1.05-1.35) 04/20/20 09:10 HCO3/H2CO3 Ratio 22:1 04/20/20 09:10 ABG pH 7.45 (7.35-7.45) 04/20/20 09:10 ABG pCO2 37.9 mmHg (35-45) 04/20/20 09:10 ABG pO2 50.8 mmHg (80-100) L 04/20/20 09:10 ABG HCO3 25.7 mmol/L (20-24) H 04/20/20 09:10 ABG Total CO2 26.9 mmol/L (21-25) H 04/20/20 09:10 ABG O2 Saturation 87.7 % (94-98) L 04/20/20 09:10 ABG Base Excess 1.8 mmol/L 04/20/20 09:10 FiO2 90% 04/20/20 09:10 Sodium 137.6 mmol/L (137-145) 04/25/20 05:25 Potassium 4.6 mmol/L (3.6-5.0) 04/25/20 05:25 Chloride 107 mmol/L (98-107) 04/25/20 05:25 Carbon Dioxide 24 mmol/L (22-30) 04/25/20 05:25 Anion Gap 7 (5-19) 04/25/20 05:25 BUN 12 mg/dL (7-20) 04/25/20 05:25 Creatinine 0.53 mg/dL (0.52-1.25) 04/25/20 05:25 Est GFR ( Amer) > 60 (>60) 04/25/20 05:25 Est GFR (MDRD) Non-Af > 60 (>60) 04/25/20 05:25 Glucose 110 mg/dL (75-110) 04/25/20 05:25 Lactic Acid 1.0 mmol/L (0.7-2.1) 04/21/20 03:50 Calcium 8.8 mg/dL (8.4-10.2) 04/25/20 05:25 Phosphorus 4.6 mg/dL (2.5-4.5) H 04/25/20 05:25 Magnesium 2.0 mg/dL (1.6-2.3) 04/25/20 05:25 Ferritin 76.20 ng/mL (6.2-137.0) 04/24/20 04:16 Total Bilirubin 0.4 mg/dL (0.2-1.3) 04/24/20 04:16 Direct Bilirubin 0.0 mg/dL (0.0-0.4) 04/24/20 04:16 Neonat Total Bilirubin Not Reportable 04/24/20 04:16 Neonat Direct Bilirubin Not Reportable 04/24/20 04:16 Neonat Indirect Bili Not Reportable 04/24/20 04:16 AST 49 U/L (14-36) H 04/24/20 04:16 ALT 30 U/L (<35) 04/24/20 04:16 Alkaline Phosphatase 48 U/L (38-126) 04/24/20 04:16 Ammonia 15.6 umol/L (9-33) 04/20/20 14:55 Creatine Kinase 99 U/L (30-135) 04/21/20 03:50 C-Reactive Protein 7.8 mg/L (<10.0) 04/24/20 04:16 Total Protein 6.5 g/dL (6.3-8.2) 04/24/20 04:16 Albumin 3.3 g/dL (3.5-5.0) L 04/24/20 04:16 Interleukin 6 60.3 pg/mL (0.0-12.2) H 04/20/20 14:55 TSH 0.40 uIU/mL (0.47-4.68) L 04/20/20 04:38 Serum HCG, Qual NEGATIVE (NEGATIVE) 04/20/20 04:38 Urine Color YELLOW 04/25/20 16:40 Urine Appearance SLIGHTLY-CLOUDY 04/25/20 16:40 Urine pH 6.0 (5.0-9.0) 04/25/20 16:40 Ur Specific [place] 1.017 04/25/20 16:40 Urine Protein NEGATIVE mg/dL (NEGATIVE) 04/25/20 16:40 Urine Glucose (UA) NEGATIVE mg/dL (NEGATIVE) 04/25/20 16:40 Urine Ketones NEGATIVE mg/dL (NEGATIVE) 04/25/20 16:40 Urine Blood NEGATIVE (NEGATIVE) 04/25/20 16:40 Urine Nitrite NEGATIVE (NEGATIVE) 04/25/20 16:40 Urine Bilirubin NEGATIVE (NEGATIVE) 04/25/20 16:40 Urine Urobilinogen NEGATIVE mg/dL (<2.0) 04/25/20 16:40 Ur Leukocyte Esterase NEGATIVE (NEGATIVE) 04/25/20 16:40 Urine WBC (Auto) 1 /HPF 04/25/20 16:40 Urine RBC (Auto) 7 /HPF 04/20/20 03:50 Urine Bacteria (Auto) TRACE /HPF 04/20/20 03:50 Squamous Epi Cells Auto 1 /HPF 04/25/20 16:40 Calcium Oxalate Cr Auto MANY /HPF 04/25/20 16:40 Urine Mucus (Auto) RARE /LPF 04/25/20 16:40 Urine Ascorbic Acid 40 (NEGATIVE) H 04/25/20 16:40 COVID-19 Source NASOPHARYNGEAL 04/18/20 23:08 COVID-19 (JENNIFER) DETECTED H 04/18/20 23:08 Slides for Path Review PATHOLOGIST REVIEWED 04/23/20 06:28 Blood Type A NEGATIVE 04/20/20 16:10 Antibody Screen NEGATIVE 04/20/20 16:10 Impressions: Chest X-Ray 04/18/20 21:55 IMPRESSION: 1. Interval increase in bibasilar opacities concerning for bilateral pneumonic process. Bilateral pneumonia could produce this appearance. Chest X-Ray 04/20/20 00:00 IMPRESSION: Extensive bilateral airspace disease which has progressed when compared to prior study. This could represent atypical pneumonia or less likely edema. Chest X-Ray 04/23/20 06:00 IMPRESSION: Improving pneumonia. Plan Plan of Treatment: Patient is discharged home in stable condition. She is advised to follow-up with her primary care provider within 1 week. She is instructed not to return to work until she has followed up with her primary provider and she has completed her at home quarantine (to finish 04/29/2020). She has been provided a work note to excuse her from work until at least 05/05 to facilitate her follow-up needs. Patient is advised to rest, increase activity slowly. Drink plenty of water. Complete course of steroid therapy. Return to emergency department immediately for any concerning symptoms. Time Spent: Greater than 30 Minutes Stroke Is this a Stroke Patient?: No Acute Heart Failure - Is this a Heart Failure Patient?: No
== END 2020-04-26 11:43 | disposition home or self-care (01) | DRG 177 ==
LOC: ER 21:29 → EH 04-19 00:50 → 3N 04-19 04:50 → ICU 04-20 13:44 → 3N 04-24 17:30
PROVIDERS: ADMIT Emergency Medicine; ATTEND Internal Medicine Critical Care Medicine
PROC: 30233L1 Transfusion of Nonautologous Fresh Plasma into Peripheral Vein, Percutaneous Approach (ICD-10-PCS; principal; 2020-04-20)
PROC: 3E04329 Introduction of Other Anti-infective into Central Vein, Percutaneous Approach (ICD-10-PCS; 2020-04-20)
DX: U07.1 COVID-19 (principal); J96.01 Acute respiratory failure with hypoxia; J12.89 Other viral pneumonia; Z68.41 Body mass index [BMI] 40.0-44.9, adult; F41.1 Generalized anxiety disorder; G47.00 Insomnia, unspecified; F40.240 Claustrophobia; E66.01 Morbid (severe) obesity due to excess calories; Z87.891 Personal history of nicotine dependence; Z79.899 Other long term (current) drug therapy
CPT/HCPCS: 36415; 36430; 71045; 80048; 80053; 81001; 82140; 82550; 82728; 82803; 83520; 83605; 83735; 84100; 84145; 84443; 84703; 85025; 85027; 85379; 85610; 85730; 86140; 86850; 86900; 86901; 87040; 87635; 96360; 99221; 99285; 99291; 99292; C9803; J0696; J1100; J1650; J2270; J2405; J2550; J3411; J3475; J3490; J7030; J7050; J7121; J8540